=== PATIENT | male | born 1945 | race Caucasian/White ===

== ENCOUNTER 2021-12-30 10:41 | Emergency (ER) | payer OTHER, MEDICARE ==
--- OUTSIDE RECORDS SUMMARY | 2021-12-30 10:44 | XMS REPORT | Continuity of Care Document ---
:1945 Author Organization [facility] t Address [address] [place] [address] Dr. Youngblood [address] [place] [address] Care Team Providers Name Role Phone Baltazar Madden MD Primary Care Physician BALTAZAR MADDEN Attending Clinician Unavailable Problems This patient has no known problems. Allergies, Adverse Reactions, Alerts This patient has no known allergies or adverse reactions. Social History Social Habit Start Date Stop Date Quantity Comments Source Sex Assigned At [birth year] [facility] 00:00:00 00:00:00 Smoking Status Start Date Stop Date Source Tobacco smoking consumption unknown [facility] Medications This patient has no known medications. Procedures This patient has no known procedures. Plan of Care Planned Activity Planned Date Details Comments Source Future Scheduled 2021-11-15 Hepatitis C screening [facility] Test 19:13:45 (procedure) [code = [id number]] Future Scheduled 2021-11-15 COLONOSCOPY SCREENING [facility] Test 19:13:45 [code = COLONOSCOPY SCREENING] Future Scheduled 2021-11-15 SHINGLES VACCINES (1 [facility] Test 19:13:45 of 2) [code = SHINGLES VACCINES (1 of 2)] Future Scheduled 2021-11-15 65+ [facility] 19:13:45 VACCINE (1 - PCV) [code = 65+ PNEUMOCOCCAL VACCINE (1 - PCV)] Future Scheduled 2021-11-15 INFLUENZA VACCINE [facility] Test 19:13:45 [code = INFLUENZA VACCINE] Future Scheduled 2021-11-15 HEPATITIS B VACCINES [facility] Test 19:13:45 (1 of 3 - 3-dose series) [code = HEPATITIS B VACCINES (1 of 3 - 3-dose series)] Future Scheduled 2021-11-15 COVID-19 VACCINE (#1) [facility] Test 19:13:45 [code = COVID-19 VACCINE (#1)] Encounters Start End Encounter Admission Attending Care Care Encounter Source Date/Time Date/Time Type Type Clinicians Facility Department ID 2020-05-17 2020-05-17 Outpatient [facility] [id number] 00:00:00 00:00:00 BALTAZAR [address] 2020-05-17 2020-05-17 Outpatient [facility] [id number] [address] [place] [address] 00:00:00 00:00:00 BALTAZAR [address] Results This patient has no known results.
[2021-12-30] MEDS ORDERED: MORPHINE 4 MG/ML SYR ONE (10:57)
[2021-12-30] MEDS ORDERED: NA CHLORIDE 0.9% 1,000 ML ONE (10:58)
[2021-12-30] MEDS ORDERED: ONDANSETRON 4 MG/2 ML VIAL ONE (10:58)
[2021-12-30 11:14] LABS: Absolute Lymphocytes (CBC) 1.7 K/uL (0.7-4.9); Hematocrit 43.8 % (39.6-49.0); Lymphocytes % 15.2 % (15.3-44.8); MCV 92.4 fL (80-100); MPV 8.6 fL (7.6-11.3); RBC Red Blood Cell Count 4.75 M/uL (4.33-5.43)
[2021-12-30 11:33] LABS: Albumin 3.8 g/dL (3.4-5.0); Bilirubin Total 0.5 mg/dL (0.2-1.0); Potassium 4.5 mmol/L (3.5-5.1); Protein, Total 7.4 g/dL (6.4-8.2)
--- NOTE | 2021-12-30 12:15 | RAD REPORT ---
EXAM DESCRIPTION: CTStone Protocol - 12/30/2021 12:03 pm CLINICAL HISTORY: flank pain COMPARISON: Abdomen Pelvis W Contrast dated 02/04/2016; CT ABD PELVIS W CONTRAST dated 10/06/2013 TECHNIQUE: CT of the abdomen and pelvis was performed. All CT scans are performed using dose optimization technique as appropriate and may include automated exposure control or mA/KV adjustment according to patient size. FINDINGS: Lower chest: Mild scarring in the lingula. Coronary artery calcifications. Liver: No acute abnormality or suspicious lesions. Biliary: Cholecystectomy Stomach: No significant focal abnormality. Duodenum: No significant focal abnormality. Pancreas: No significant abnormality. Spleen: No significant abnormality. Adrenal: Unchanged benign right adrenal nodule. Kidney/ureter: Mild left-sided hydronephrosis secondary to a 6 mm stone in the left proximal ureter. Other bilateral renal calculi noted. Right lower pole renal cyst. Retroperitoneum: No retroperitoneal adenopathy. Vascular: No aneurysm. Bowel: Diverticulosis. No evidence of acute diverticulitis. Appendectomy.. Peritoneum: No ascites or free air. Fat containing left inguinal hernia. Bladder: Grossly unremarkable. Reproductive: No adnexal masses. Bones: No acute fracture. Other: n/a IMPRESSION: Mild left-sided hydronephrosis secondary to a 6 mm stone in the left proximal ureter.
[2021-12-30 12:18] LABS: Urine Blood 3+ (Negative); Urine Glucose Negative (Negative); Urine Protein 2+ (Negative)
[2021-12-30 12:35] LABS: Urine RBC >50 /HPF (None Seen)
[2021-12-30] MEDS ORDERED: TAMSULOSIN 0.4 MG SR CAP ONE (12:53)
[2021-12-30] MEDS ORDERED: CEFTRIAXONE 1000 MG/VIAL ONE (12:53)
[2021-12-30] MEDS ORDERED: NA CHLORIDE 0.9% 50 ML IV ONE (12:53)
[2021-12-30] MEDS ORDERED: KETOROLAC 30 MG/ML INJ ONE (12:53)
--- NOTE | 2021-12-30 13:14 | ER ---
Nurse's Notes [facility] Name: Kannan Figueroa Age: 76 yrs Sex: Male : 1945 Arrival Date: 12/30/2021 Time: 10:42 Bed 6 Private MD: Baltazar Madden V Diagnosis: Hydronephrosis with renal and ureteral calculous obstruction-6 mm left proximal calculi;UTI/ Urinary tract infection, site not specified Presentation: 12/30 10:55 Chief complaint: Patient states: left flank pain this morning and he has been having iw dark colored urine this past week , denies n/v , denies pain with urination pain is 8/10 , no hx of kidney stones. Coronavirus screen: At this time, the client does not indicate any symptoms associated with coronavirus-19. Ebola Screen: Patient negative for fever greater than or equal to 101.5 degrees Fahrenheit, and additional compatible Ebola Virus Disease symptoms Patient denies exposure to infectious person. Patient denies travel to an Ebola-affected area in the 21 days before illness onset. No symptoms or risks identified at this time. Initial Sepsis Screen: Does the patient meet any 2 criteria? No. Patient's initial sepsis screen is negative. Does the patient have a suspected source of infection? No. Patient's initial sepsis screen is negative. Risk Assessment: Do you want to hurt yourself or someone else? Patient reports no desire to harm self or others. Onset of symptoms was December 30, 2021. 10:55 Method Of Arrival: Ambulatory iw 10:55 Acuity: ROSALBA 3 iw Historical: - Allergies: 10:56 No Known Allergies; iw - Home Meds: 10:56 losartan 100 mg oral tab 1 tab once daily [Active]; AcipHex 20 mg Oral TbEC 1 tab once iw daily [Active]; propranolol 120 mg Oral cp24 1 cap once daily [Active]; Pravachol 40 mg Oral tab 1 tab once daily [Active]; topiramate 50 mg oral tab 1 tab 2 times per day [Active]; naltrexone 1.5 mg BID oral [Active]; Vitamin D3 50 mcg (2,000 unit) oral cap daily [Active]; sumatriptan succinate 100 mg oral tab 1 tab [Active]; - PMHx: 10:56 Pancreatitis; Migraine; Hypercholesterolemia; Hypertensive disorder; Arthritis; iw - PSHx: 10:56 Cholecystectomy; prostate; Appendectomy; justine knee; Tonsillectomy; Adenoid excision; iw - Immunization history:: Adult Immunizations Client reports receiving the 2nd dose of the Covid vaccine. - Social history:: Smoking status: Patient denies any tobacco usage or history of. - Family history:: not pertinent. Screenin:50 Abuse screen: Denies threats or abuse. Nutritional screening: No deficits noted. mb9 Tuberculosis screening: No symptoms or risk factors identified. Fall Risk None identified. Assessment: 10:45 General: Appears comfortable, Behavior is calm, cooperative, appropriate for age. Pain: mb9 Complains of pain in LUQ and left flank Pain currently is 8 out of 10 on a pain scale. Quality of pain is described as sharp, throbbing, Pain began suddenly, this morning Alleviated by laying supine and sitting up. 10:45 Neuro: Level of Consciousness is awake, alert, obeys commands, Oriented to person, mb9 place, time, situation, Appropriate for age. Cardiovascular: Heart tones S1 S2 present Rhythm is regular. Respiratory: Airway is patent Respiratory effort is even, unlabored, Respiratory pattern is regular, symmetrical, Breath sounds are clear bilaterally. GI: Abdomen is round Bowel sounds present X 4 quads. Abd is soft Abdomen is tender to palpation in left upper quadrant. : Denies pain urinary frequency. EENT: No signs and/or symptoms were reported regarding the EENT system. Derm: Skin is pink, warm \T\ dry. Musculoskeletal: Range of motion: intact in all extremities. 11:45 Pain: Complains of pain in left lower quadrant and left mid back and left low back and mb9 left upper quadrant. Neuro: Level of Consciousness is awake, alert, obeys commands, Oriented to person, place, time, situation, Appropriate for age. Cardiovascular: Heart tones S1 S2 present Rhythm is regular. Respiratory: Airway is patent Respiratory effort is even, unlabored, Respiratory pattern is regular, symmetrical. GI: Abdomen is round. Derm: Skin is pink, warm \T\ dry. 13:00 Pain: Complains of pain in left lower quadrant and left mid back and left low back and mb9 left upper quadrant. Neuro: Level of Consciousness is awake, alert, obeys commands, Oriented to person, place, time, situation, Appropriate for age. Cardiovascular: Heart tones S1 S2 present. Respiratory: Airway is patent Respiratory effort is even, unlabored, Respiratory pattern is regular, symmetrical, Breath sounds are clear bilaterally. Derm: Skin is pink, warm \T\ dry. 14:23 Pain: Denies pain. Neuro: Level of Consciousness is awake, alert, obeys commands. mb9 Neuro: Oriented to person, place, time, situation, Appropriate for age. Cardiovascular: Heart tones S1 S2 present Rhythm is regular. Respiratory: Airway is patent Respiratory effort is even, unlabored, Respiratory pattern is regular, symmetrical. Derm: Skin is pink, warm \T\ dry. 15:30 Pain: Denies pain. Neuro: Level of Consciousness is awake, alert, obeys commands, mb9 Oriented to person, place, time, situation, Appropriate for age. Respiratory: Airway is patent Respiratory effort is even, unlabored, Respiratory pattern is regular, symmetrical. Derm: Skin is pink, warm \T\ dry. Vital Signs: 10:45 BP 112 / 69; Pulse 56; Resp 16; Pulse Ox 100% on R/A; Pain 8/10; mb9 10:55 BP 134 / 77; Pulse 60; Resp 16; Temp 98.3; Pulse Ox 95% ; Weight 104.33 kg; Height 5 iw ft. 5 in. (165.10 cm); Pain 8/10; 11:22 BP 128 / 73; Pulse 52; Resp 16; Pulse Ox 100% on R/A; Pain 8/10; mb9 11:44 BP 128 / 77; Pulse 58; Resp 15; Pulse Ox 100% ; mb9 13:00 BP 141 / 95; Pulse 63; Resp 18; Pulse Ox 100% on R/A; mb9 14:00 BP 127 / 73; Pulse 67; Resp 16; Pulse Ox 100% ; mb9 10:55 Body Mass Index 38.27 (104.33 kg, 165.10 cm) iw ED Course: 10:42 Patient arrived in ED. am2 10:42 Baltazar Madden MD is Private Physician. am2 10:46 Eulalia Acharya, LEONID is Primary Nurse. mb9 10:47 Oneil Cee MD is Attending Physician. carol 10:56 Triage completed. iw 11:00 Arm band placed on. iw 11:00 Placed in gown. Bed in low position. Call light in reach. Side rails up X 1. mb9 11:16 CBC with Diff Sent. mb9 11:16 CMP Sent. mb9 11:16 Lipase Sent. mb9 11:16 Urine Microscopic Only Sent. mb9 11:16 Inserted saline lock: 20 gauge in right antecubital area, using aseptic technique. mb9 ,using aseptic technique. completed by Crescencio Blood collected. 11:30 No provider procedures requiring assistance completed. mb9 12:04 Stone Protocol In Process Unspecified. EDMS 13:13 Baltazar Madden MD is Referral Physician. carol 13:13 Angel Dooley MD is Referral Physician. carol 15:19 Abdomen 1 View (KUB) XRAY In Process Unspecified. EDMS 15:30 IV discontinued, intact, bleeding controlled, No redness/swelling at site. Pressure mb9 dressing applied. Administered Medications: 11:15 Drug: NS 0.9% 1000 ml Route: IV; Rate: 1 bolus; Site: right antecubital; mb9 14:27 Follow up: Response: No adverse reaction; IV Status: Completed infusion mb9 11:16 Drug: Zofran (Ondansetron) 4 mg Route: IVP; Site: right antecubital; mb9 11:46 Follow up: Response: No adverse reaction mb9 11:16 Drug: morphine 4 mg Route: IVP; Infused Over: 4 mins; Site: right antecubital; mb9 11:45 Follow up: Response: No adverse reaction mb9 12:48 CANCELLED (Physician Discretion): Rocephin (cefTRIAXone) 1 grams IV at per protocol mb9 once; Given slow IV push per pharmacy instructions 13:05 Drug: Flomax (tamsulosin) 0.4 mg Route: PO; mb9 13:35 Follow up: Response: No adverse reaction aa5 13:05 Drug: Rocephin - (cefTRIAXone) 1 grams Route: IVPB; Infused Over: 30 mins; Site: right mb9 antecubital; 13:35 Follow up: Response: No adverse reaction; IV Status: Completed infusion aa5 13:10 Drug: TORadol (ketorolac) 30 mg Route: IVP; Site: right antecubital; mb9 14:18 Follow up: Response: No adverse reaction mb9 13:20 Drug: Cipro (ciprofloxacin) 500 mg Route: PO; mb9 13:45 Follow up: Response: No adverse reaction mb9 Medication: 10:50 VIS not applicable for this client. mb9 Outcome: 13:13 Discharge ordered by MD. medina 14:52 Patient left the ED. 15:30 Discharged to home ambulatory. mb9 15:30 Condition: stable 15:30 Discharge instructions given to patient, Instructed on discharge instructions, follow up and referral plans. Demonstrated understanding of instructions, follow-up care, medications, Prescriptions given X 4. Signatures: Dispatcher [employer] EDMT Oneil Cee MD MD cha Williams, Irene, LEONID RN Keiko Bergeron RN RN [email or web address] Fabby Haque Mary RN RN mb9 Corrections: (The following items were deleted from the chart) 12:07 10:45 Pain: Complains of pain in LUQ and left flank Pain currently is 8 out of 10 on a mb9 pain scale. Quality of pain is described as sharp, throbbing, Alleviated by laying supine and sitting up mb9
--- NOTE | 2021-12-30 13:14 | EDPHYS ---
Physician Documentation [facility] Name: Kannan Figueroa Age: 76 yrs Sex: Male : 1945 Arrival Date: 12/30/2021 Time: 10:42 Bed 6 Private MD: Baltazar Madden V ED Physician Oneil Cee HPI: 12/30 12:34 This 76 yrs old Male presents to ER via Ambulatory with complaints of carol Abdominal Pain, Back Pain, dark urine. 12:34 The patient presents with pain that is acute, with no known mechanism of injury. The carol symptoms are located in the left low back and left mid back. Onset: The symptoms/episode began/occurred 1 day(s) ago. The pain radiates to the left low back and left mid back. The pain does not radiate. Associated signs and symptoms: The patient has no apparent associated signs or symptoms. The problem was sustained from unknown cause. Modifying factors: The patient symptoms are alleviated by nothing, the patient symptoms are aggravated by nothing. Severity of symptoms: At their worst the symptoms were mild, moderate, in the emergency department the symptoms have resolved. The patient has not experienced similar symptoms in the past. Historical: - Allergies: 10:56 No Known Allergies; iw - Home Meds: 10:56 losartan 100 mg oral tab 1 tab once daily [Active]; AcipHex 20 mg Oral TbEC 1 tab once iw daily [Active]; propranolol 120 mg Oral cp24 1 cap once daily [Active]; Pravachol 40 mg Oral tab 1 tab once daily [Active]; topiramate 50 mg oral tab 1 tab 2 times per day [Active]; naltrexone 1.5 mg BID oral [Active]; Vitamin D3 50 mcg (2,000 unit) oral cap daily [Active]; sumatriptan succinate 100 mg oral tab 1 tab [Active]; - PMHx: 10:56 Pancreatitis; Migraine; Hypercholesterolemia; Hypertensive disorder; Arthritis; iw - PSHx: 10:56 Cholecystectomy; prostate; Appendectomy; justine knee; Tonsillectomy; Adenoid excision; iw - Immunization history:: Adult Immunizations Client reports receiving the 2nd dose of the Covid vaccine. - Social history:: Smoking status: Patient denies any tobacco usage or history of. - Family history:: not pertinent. ROS: 12:34 Constitutional: Negative for fever, chills, and weight loss, Eyes: Negative for injury, carol pain, redness, and discharge, ENT: Negative for injury, pain, and discharge, Neck: Negative for injury, pain, and swelling, Cardiovascular: Negative for chest pain, palpitations, and edema, Respiratory: Negative for shortness of breath, cough, wheezing, and pleuritic chest pain, : Negative for injury, bleeding, discharge, and swelling, MS/Extremity: Negative for injury and deformity, Skin: Negative for injury, rash, and discoloration, Neuro: Negative for headache, weakness, numbness, tingling, and seizure, Psych: Negative for depression, anxiety, suicide ideation, homicidal ideation, and hallucinations, Allergy/Immunology: Negative for hives, rash, and allergies, Endocrine: Negative for neck swelling, polydipsia, polyuria, polyphagia, and marked weight changes, Hematologic/Lymphatic: Negative for swollen nodes, abnormal bleeding, and unusual bruising. 12:34 Respiratory: Positive for 12:34 Abdomen/GI: Positive for abdominal pain, of the anterior aspect of left lateral abdomen, posterior aspect of left lateral abdomen and left upper quadrant. Exam: 12:34 Constitutional: This is a well developed, well nourished patient who is awake, alert, carol and in no acute distress. Head/Face: Normocephalic, atraumatic. Eyes: Pupils equal round and reactive to light, extra-ocular motions intact. Lids and lashes normal. Conjunctiva and sclera are non-icteric and not injected. Cornea within normal limits. Periorbital areas with no swelling, redness, or edema. ENT: Nares patent. No nasal discharge, no septal abnormalities noted. Tympanic membranes are normal and external auditory canals are clear. Oropharynx with no redness, swelling, or masses, exudates, or evidence of obstruction, uvula midline. Mucous membranes moist. Neck: Trachea midline, no thyromegaly or masses palpated, and no cervical lymphadenopathy. Supple, full range of motion without nuchal rigidity, or vertebral point tenderness. No Meningismus. Chest/axilla: Normal chest wall appearance and motion. Nontender with no deformity. No lesions are appreciated. Cardiovascular: Regular rate and rhythm with a normal S1 and S2. No gallops, murmurs, or rubs. Normal PMI, no JVD. No pulse deficits. Respiratory: Lungs have equal breath sounds bilaterally, clear to auscultation and percussion. No rales, rhonchi or wheezes noted. No increased work of breathing, no retractions or nasal flaring. Male : Normal genitalia with no discharge or lesions. Skin: Warm, dry with normal turgor. Normal color with no rashes, no lesions, and no evidence of cellulitis. MS/ Extremity: Pulses equal, no cyanosis. Neurovascular intact. Full, normal range of motion. Neuro: Awake and alert, GCS 15, oriented to person, place, time, and situation. Cranial nerves II-XII grossly intact. Motor strength 5/5 in all extremities. Sensory grossly intact. Cerebellar exam normal. Normal gait. Psych: Awake, alert, with orientation to person, place and time. Behavior, mood, and affect are within normal limits. 12:34 Abdomen/GI: Inspection: distension, that is mild, in the left upper quadrant and left lower quadrant, Palpation: mild abdominal tenderness, in the anterior aspect of left lateral abdomen, posterior aspect of left lateral abdomen, left upper quadrant and left lower quadrant, Liver: no appreciated palpable abnormalities, Hernia: not appreciated. Vital Signs: 10:45 BP 112 / 69; Pulse 56; Resp 16; Pulse Ox 100% on R/A; Pain 8/10; mb9 10:55 BP 134 / 77; Pulse 60; Resp 16; Temp 98.3; Pulse Ox 95% ; Weight 104.33 kg; Height 5 iw ft. 5 in. (165.10 cm); Pain 8/10; 11:22 BP 128 / 73; Pulse 52; Resp 16; Pulse Ox 100% on R/A; Pain 8/10; mb9 11:44 BP 128 / 77; Pulse 58; Resp 15; Pulse Ox 100% ; mb9 13:00 BP 141 / 95; Pulse 63; Resp 18; Pulse Ox 100% on R/A; mb9 14:00 BP 127 / 73; Pulse 67; Resp 16; Pulse Ox 100% ; mb9 10:55 Body Mass Index 38.27 (104.33 kg, 165.10 cm) iw MDM: 10:47 Patient medically screened. carol 12:37 Differential diagnosis: Obesity Osteoarthritis Perforated Ulcer Renal Infarction carol ruptured disc, sprain, Ureterolithiasis vertebral fracture. Data reviewed: vital signs, nurses notes, lab test result(s), radiologic studies, CT scan. Data interpreted: nuclear monitoring technician: rate is 58 beats/min, rhythm is regular, Pulse oximetry: on room air is 100 %. Counseling: I had a detailed discussion with the patient and/or guardian regarding: the presence of at least one elevated blood pressure reading (>120/80) during this emergency department visit, lab results, the need for outpatient follow up. 12/30 10:49 Order name: CBC with Diff; Complete Time: 12:[address] [facility] 12/30 10:49 Order name: CMP; Complete Time: 12:[address] [facility] 12/30 10:49 Order name: Lipase; Complete Time: 12:[address] [facility] 12/30 10:49 Order name: Urine Microscopic Only; Complete Time: 13:[address] [facility] 12/30 12:18 Order name: Urine Dipstick-Ancillary; Complete Time: 12:21 [facility] 12/30 12:38 Order name: Urine Culture [facility] 12/30 11:19 Order name: Stone Protocol; Complete Time: 12:21 [facility] 12/30 13:43 Order name: Abdomen 1 View (KUB) XRAY aa5 12/30 10:49 Order name: IV Saline Lock; Complete Time: 11:[address] [facility] 12/30 10:49 Order name: Labs collected and sent; Complete Time: 11:[address] [facility] 12/30 10:49 Order name: Urine Dipstick-Ancillary (obtain specimen); Complete Time: 12:[address] [facility] Administered Medications: 11:15 Drug: NS 0.9% 1000 ml Route: IV; Rate: 1 bolus; Site: right antecubital; mb9 14:27 Follow up: Response: No adverse reaction; IV Status: Completed infusion mb9 11:16 Drug: Zofran (Ondansetron) 4 mg Route: IVP; Site: right antecubital; mb9 11:46 Follow up: Response: No adverse reaction mb9 11:16 Drug: morphine 4 mg Route: IVP; Infused Over: 4 mins; Site: right antecubital; mb9 11:45 Follow up: Response: No adverse reaction mb9 12:48 CANCELLED (Physician Discretion): Rocephin (cefTRIAXone) 1 grams IV at per protocol mb9 once; Given slow IV push per pharmacy instructions 13:05 Drug: Flomax (tamsulosin) 0.4 mg Route: PO; mb9 13:35 Follow up: Response: No adverse reaction aa5 13:05 Drug: Rocephin - (cefTRIAXone) 1 grams Route: IVPB; Infused Over: 30 mins; Site: right mb9 antecubital; 13:35 Follow up: Response: No adverse reaction; IV Status: Completed infusion aa5 13:10 Drug: TORadol (ketorolac) 30 mg Route: IVP; Site: right antecubital; mb9 14:18 Follow up: Response: No adverse reaction mb9 13:20 Drug: Cipro (ciprofloxacin) 500 mg Route: PO; mb9 13:45 Follow up: Response: No adverse reaction mb9 Disposition Summary: 12/30/21 13:13 Discharge Ordered Location: Home [facility] Problem: new carol Symptoms: have improved carol Condition: Stable carol Diagnosis - Hydronephrosis with renal and ureteral calculous obstruction - 6 mm left proximal carol calculi - UTI/ Urinary tract infection, site not specified carol Followup: carol - With: - When: 2 - 3 days - Reason: Recheck today's complaints, Continuance of care, Re-evaluation by your physician Followup: carol - With: - When: 2 - 3 days - Reason: Recheck today's complaints, Re-evaluation by your physician Discharge Instructions: - Discharge Summary Sheet carol - Kidney Stones carol - Kidney Stones, [id number] carol - Hydronephrosis carol - Urinary Tract Infection, Adult carol - Urinary Tract Infection, Adult, [id number] [facility] Forms: - Medication Reconciliation Form [facility] - Thank You Letter [facility] - Antibiotic Education [facility] - Prescription Opioid Use [facility] Prescriptions: - tamsulosin 0.4 mg Oral capsule - take 1 capsule by ORAL route once daily 1/2 hour following the same meal each [facility] day; 30 capsule; Refills: 0, Product Selection Permitted - Zofran 4 mg Oral Tablet - take 1 tablet by ORAL route every 12 hours As needed; 20 tablet; Refills: 0, [facility] Product Selection Permitted - Tylenol-Codeine #3 300 mg-30 mg Oral - take 2 tablet by ORAL route every 6 hours; 24 tablet; Refills: 0, Product carol Selection Permitted - Cipro 500 mg Oral Tablet - take 1 tablet by ORAL route every 12 hours for 7 days; 14 tablet; Refills: 0, [facility] Product Selection Permitted Signatures: Dispatcher [employer] Oneil Mariano MD MD cha Williams, Irene, RN Eulalia Ruiz RN RN mb9 Keiko Hancock RN aa5 Corrections: (The following items were deleted from the chart) 12:48 12:22 Rocephin (cefTRIAXone) 1 grams IV at per protocol once; Given slow IV push per 9 pharmacy instructions ordered. carol 12:48 12:48 Rocephin (cefTRIAXone) 1 grams IV at per protocol once; Given slow IV push per 9 pharmacy instructions ordered. mb9
[2021-12-30] MEDS ORDERED: CIPROFLOXACIN HCL 500 MG TAB ONE (14:29)
[2021-12-30 15:08] VITALS: TEMP 98.3
[2021-12-30 15:14] VITALS: O2SAT 100
[2021-12-30 15:18] VITALS: BP 127/73
--- NOTE | 2021-12-30 15:37 | RAD REPORT ---
EXAM DESCRIPTION: RAD - Abdomen 1 View (KUB) - 12/30/2021 3:17 pm CLINICAL HISTORY: kidney stone COMPARISON: Stone Protocol dated 12/30/2021 FINDINGS: Nonobstructive bowel gas pattern. Calcification at the level of the left L3-4 disc space o n the left may represent the known ureteral stone.Visualized lungs are unremarkable.No abnormal calci fications. IMPRESSION: Nonobstructive bowel gas pattern. Known ureteral stone on the left side at L3-4.
== END 2021-12-30 14:52 | disposition home or self-care (01) ==
LOC: ER 10:41
DX: N13.2 Hydronephrosis with renal and ureteral calculous obstruction (principal); N39.0 Urinary tract infection, site not specified; I10 Essential (primary) hypertension
CPT/HCPCS: 96365; 96361; 87088; 85025; 87086; 36415; 83690; 80053; 76377; 74176; 74018; 96375; 99284; J7030; J2405; 81003; 81015

== ENCOUNTER 2021-12-31 11:05 | Observation (INO) | payer OTHER, MEDICARE ==
--- OUTSIDE RECORDS SUMMARY | 2021-12-31 11:07 | XMS REPORT | Continuity of Care Document ---
:1945 Author Organization [facility] t Address [address] [place] [address] [address]. [address] [place] [address] Care Team Providers Name Role Phone Baltazar Madden MD Primary Care Physician BALTAZAR MADDEN Attending Clinician Unavailable Problems This patient has no known problems. Allergies, Adverse Reactions, Alerts This patient has no known allergies or adverse reactions. Social History Social Habit Start Date Stop Date Quantity Comments Source Sex Assigned At [birth year] [facility] 00:00:00 00:00:00 Smoking Status Start Date Stop Date Source Tobacco smoking consumption unknown [facility] Medications This patient has no known medications. Procedures This patient has no known procedures. Plan of Care Planned Activity Planned Date Details Comments Source Future Scheduled 2021-11-15 INFLUENZA VACCINE Method [facility] Test 19:13:45 [code = INFLUENZA VACCINE] Future Scheduled 2021-11-15 HEPATITIS B VACCINES Met [facility] Test 19:13:45 (1 of 3 - 3-dose series) [code = HEPATITIS B VACCINES (1 of 3 - 3-dose series)] Future Scheduled 2021-11-15 COVID-19 VACCINE (#1) [facility] Test 19:13:45 [code = COVID-19 VACCINE (#1)] Future Scheduled 2021-11-15 INFLUENZA VACCINE Method [facility] Test 19:13:45 [code = INFLUENZA VACCINE] Future Scheduled 2021-11-15 HEPATITIS B VACCINES Met [facility] Test 19:13:45 (1 of 3 - 3-dose series) [code = HEPATITIS B VACCINES (1 of 3 - 3-dose series)] Future Scheduled 2021-11-15 COVID-19 VACCINE (#1) [facility] Test 19:13:45 [code = COVID-19 VACCINE (#1)] Future Scheduled 2021-11-15 Hepatitis C screening [facility] Test 19:13:45 (procedure) [code = [id number]] Future Scheduled 2021-11-15 COLONOSCOPY SCREENING [facility] Test 19:13:45 [code = COLONOSCOPY SCREENING] Future Scheduled 2021-11-15 SHINGLES VACCINES (1 Met [facility] Test 19:13:45 of 2) [code = SHINGLES VACCINES (1 of 2)] Future Scheduled 2021-11-15 65+ [facility] 19:13:45 VACCINE (1 - PCV) [code = 65+ PNEUMOCOCCAL VACCINE (1 - PCV)] Future Scheduled 2021-11-15 Hepatitis C screening [facility] Test 19:13:45 (procedure) [code = [id number]] Future Scheduled 2021-11-15 COLONOSCOPY SCREENING [facility] Test 19:13:45 [code = COLONOSCOPY SCREENING] Future Scheduled 2021-11-15 SHINGLES VACCINES (1 Met [facility] Test 19:13:45 of 2) [code = SHINGLES VACCINES (1 of 2)] Future Scheduled 2021-11-15 65+ PNEUMOCOCCAL [facility] Test 19:13:45 VACCINE (1 - PCV) [code = 65+ PNEUMOCOCCAL VACCINE (1 - PCV)] Encounters Start End Encounter Admission Attending Care Care Encounter Source Date/Time Date/Time Type Type Clinicians Facility Department ID 2020-05-17 2020-05-17 Outpatient [facility] [id number] [address] [place] [address] 00:00:00 00:00:00 BALTAZAR [address] 2020-05-17 2020-05-17 Outpatient [facility] [id number] [address] [place] [address] 00:00:00 00:00:00 BALTAZAR [address] Results This patient has no known results.
[2021-12-31 12:11] LABS: Absolute Lymphocytes (CBC) 1.7 K/uL (0.7-4.9); Hematocrit 40.8 % (39.6-49.0); Lymphocytes % 13.4 % (15.3-44.8); MPV 8.8 fL (7.6-11.3); RBC Red Blood Cell Count 4.44 M/uL (4.33-5.43)
[2021-12-31] MEDS ORDERED: NA CHLORIDE 0.9% 1,000 ML ONE (12:15)
[2021-12-31] MEDS ORDERED: FENTANYL CITR 100 MCG/2 ML ONE (12:15)
[2021-12-31 12:25] LABS: Albumin 3.4 g/dL (3.4-5.0); Bilirubin Total 0.6 mg/dL (0.2-1.0); Protein, Total 6.8 g/dL (6.4-8.2)
--- NOTE | 2021-12-31 12:28 | RAD REPORT ---
EXAM DESCRIPTION: [place] Single View12/31/2021 12:16 pm CLINICAL HISTORY: Preop exam for genitourinary surgery COMPARISON: 2017 FINDINGS: The lungs appear clear of acute infiltrate. The heart is normal size Sclerotic foci within a mid to lower anterior right rib unchanged
[2021-12-31 12:47] LABS: SARS-CoV-2 Antigen Rapid Res Negative (Negative)
--- NOTE | 2021-12-31 12:57 | RAD REPORT ---
EXAM DESCRIPTION: CT - Stone Protocol - 12/31/2021 12:39 pm CLINICAL HISTORY: Flank pain. stone COMPARISON: Stone Protocol dated 12/30/2021; CT ABD PELVIS W CONTRAST dated 10/06/2013 TECHNIQUE: Axial images were obtained without oral or IV contrast. Lack of contrast limits solid org an and vascular assessment. The [id number] spans the entirety of the system partially obscuring uppermost abdomen and lung bases. Coronal reformatted images were obtained and reviewed. All CT scans are performed using dose optimization technique as appropriate and may include automated exposure control or mA/KV adjustment according to patient size. FINDINGS: The lower lung rider are clear. Imaged portions of the liver and spleen show no suspicious findings on non-contrast imaging. The panc reas and adrenal glands are normal. No pathologic lymphadenopathy in the abdomen or pelvis. 6 mm stone is present mid left ureter. In addition, there are 2 small stones seen in the distal left ureter. The findings result in mild left hydronephrosis. Compared to yesterday's examination, the sto susana have migrated inferiorly mildly. Small stones are present in the calices of both kidneys as well. There is a prominent right renal cysts noted. 3 cm right adrenal mass appears unchanged or smaller interval. No new or worrisome solid organ findin g. No bowel obstruction, free air, free fluid or abscess. Prominent sigmoid diverticulosis without diver ticulitis.Moderate large fat containing inguinal hernia. Mild lumbosacral degenerative changes. IMPRESSION: There has been mild inferior migration of left-sided ureter stones since comparative yi dy yesterday. Left sided mild hydronephrosis persists. Bilateral nephrolithiasis is present.
--- NOTE | 2021-12-31 13:05 | EDPHYS ---
Physician Documentation [facility] Name: Kannan Figueroa Age: 76 yrs Sex: Male : 1945 Arrival Date: 12/31/2021 Time: 11:09 Bed 27 Private MD: Baltazar Madden V ED Physician Sobia Mcrae HPI: 12/31 11:45 This 76 yrs old Male presents to ER via Unassigned with complaints of Possible Kidney snw Stone, Urinary Problem. 11:45 The patient complains of pain in the left mid back. The pain does not radiate. Onset: snw The symptoms/episode began/occurred gradually. Modifying factors: The symptoms are alleviated by nothing. Associated signs and symptoms: Pertinent positives: dysuria, dark urine. Severity of pain: At its worst the pain was severe in the emergency department the pain is unchanged. The patient has experienced a previous episode, yesterday. The patient has been recently seen by a physician: The patient has been recently seen at the [facility] Emergency Department, yesterday, for similar complaints given T#3, Jeison Donaldson Zofran. 11:46 Dr. Madden is PCP. snw Historical: - Allergies: 11:42 No Known Allergies; iw - Home Meds: 12:34 Aciphex 20 mg Oral TbEC 1 tab once daily [Active]; Fioricet Oral [Active]; losartan 100 em6 mg Oral tab 1 tab once daily [Active]; naltrexone 1.5 mg BID Oral [Active]; Pravachol 40 mg Oral tab 1 tab once daily [Active]; pravastatin 20 mg Oral tab 1 tab once daily [Active]; propranolol 120 mg Oral cp24 1 cap once daily [Active]; propranolol 60 mg Oral Cs24 [Active]; Relpax 40 mg Oral tab 1 tab [Active]; sumatriptan succinate 100 mg Oral tab 1 tab [Active]; topiramate 50 mg Oral tab 1 tab 2 times per day [Active]; Vitamin D3 50 mcg (2,000 unit) Oral cap daily [Active]; - PMHx: 11:42 Arthritis; Hypercholesterolemia; Hypertensive disorder; Migraine; Pancreatitis; Angina iw pectoris; - PSHx: 12:34 Adenoid excision; Appendectomy; NICKOLAS knee; Cholecystectomy; prostate; Tonsillectomy; em6 - Immunization history:: Adult Immunizations unknown. - Social history:: Smoking status: unknown. ROS: 11:44 Constitutional: Negative for fever, chills, and weight loss, Eyes: Negative for injury, snw pain, redness, and discharge, ENT: Negative for injury, pain, and discharge, Neck: Negative for injury, pain, and swelling, Cardiovascular: Negative for chest pain, palpitations, and edema, Respiratory: Negative for shortness of breath, cough, wheezing, and pleuritic chest pain. 11:44 Abdomen/GI: Negative for abdominal pain, nausea, vomiting, diarrhea, and constipation. 11:44 MS/Extremity: Negative for injury and deformity, Skin: Negative for injury, rash, and discoloration, Neuro: Negative for headache, weakness, numbness, tingling, and seizure. 11:44 Back: Positive for flank pain, on the left. 11:44 : Positive for flank pain, dark urine. Exam: 11:43 Head/Face: Normocephalic, atraumatic. Eyes: Pupils equal round and reactive to light, snw extra-ocular motions intact. Lids and lashes normal. Conjunctiva and sclera are non-icteric and not injected. Cornea within normal limits. Periorbital areas with no swelling, redness, or edema. ENT: Nares patent. No nasal discharge, no septal abnormalities noted. Tympanic membranes are normal and external auditory canals are clear. Oropharynx with no redness, swelling, or masses, exudates, or evidence of obstruction, uvula midline. Mucous membranes moist. Neck: Trachea midline, no thyromegaly or masses palpated, and no cervical lymphadenopathy. Supple, full range of motion without nuchal rigidity, or vertebral point tenderness. No Meningismus. Chest/axilla: Normal chest wall appearance and motion. Nontender with no deformity. No lesions are appreciated. 11:43 Respiratory: Lungs have equal breath sounds bilaterally, clear to auscultation and percussion. No rales, rhonchi or wheezes noted. No increased work of breathing, no retractions or nasal flaring. 11:43 MS/ Extremity: Pulses equal, no cyanosis. Neurovascular intact. Full, normal range of motion. Neuro: Awake and alert, GCS 15, oriented to person, place, time, and situation. Cranial nerves II-XII grossly intact. Motor strength 5/5 in all extremities. Sensory grossly intact. Cerebellar exam normal. Normal gait. 11:43 Constitutional: The patient appears alert, awake, obese, uncomfortable. 11:43 Cardiovascular: Rate: bradycardic, Rhythm: regular, Heart sounds: normal. 11:43 Abdomen/GI: Inspection: obese Bowel sounds: active, Palpation: nontender. 11:43 Back: pain, that is moderate, CVA tenderness, that is moderate, is noted on the left. 11:43 Skin: Appearance: Color: dusky, Temperature: normal temperature, Moisture: dry. Vital Signs: 11:42 BP 105 / 69; Pulse 52; Resp 16; Temp 97.4; Pulse Ox 97% on R/A; Pain 8/10; iw 13:00 BP 100 / 61; Pulse 51; Resp 16; Pulse Ox 100% on R/A; em6 14:00 BP 119 / 62; Pulse 54; Resp 16; Pulse Ox 100% on R/A; em6 15:00 BP 118 / 70; Pulse 50; Resp 16; Pulse Ox 100% on R/A; em6 16:08 BP 105 / 70; Pulse 57; Resp 16; Pulse Ox 100% on R/A; em6 MDM: 11:47 Patient medically screened. snw 12:40 Data reviewed: vital signs, nurses notes. Data interpreted: Pulse oximetry: on room air snw is 97 %. 12:46 Physician consultation: Angel Dooley MD was contacted at 12:46, regarding consult, snw patient's condition, Dr. Dooley states he can certainly stent pt tomorrow. 13:03 Physician consultation: Baltazar Madden MD was called at 13:03, was contacted at 13:03, [facility] regarding admission, to the telemetry unit. 13:05 Physician consultation: would like medications started, Dilaudid 1mg SIVP q 4hours prn snw pain. 12/31 11:43 Order name: CBC with Diff; Complete Time: 12:16 snw 12/31 11:43 Order name: CMP; Complete Time: 12:30 snw 12/31 11:43 Order name: Lipase; Complete Time: 12:30 snw 12/31 11:43 Order name: SARS RAPID; Complete Time: 12:47 snw 12/31 13:40 Order name: Basic Metabolic Panel EDMS 10/17 13:40 Order name: Basic Metabolic Panel EDMS 12/31 11:43 Order name: CT Stone Protocol snw 12/31 11:43 Order name: Chest Single View XRAY; Complete Time: 12:30 snw 12/31 13:40 Order name: CBC with Automated Diff EDMS 12/31 13:40 Order name: CBC with Automated Diff EDMS 12/31 13:40 Order name: Lipase EDMS 12/31 13:40 Order name: Lipase EDMS 12/31 13:40 Order name: Liver (Hepatic) Function EDMS 12/31 13:40 Order name: Liver (Hepatic) Function EDMS 12/31 11:43 Order name: IV Saline Lock; Complete Time: 12:31 snw 12/31 11:43 Order name: Labs collected and sent; Complete Time: 12:31 snw 12/31 11:43 Order name: EKG; Complete Time: 11:44 snw 12/31 11:43 Order name: EKG - Nurse/Tech; Complete Time: 12:31 snw 12/31 12:36 Order name: Stone Protocol; Complete Time: 13:00 EDMS 12/31 13:40 Order name: Diet - Advance as Tolerated EDMS 12/31 13:40 Order name: NPO EDMS EC:35 Rate is 55 beats/min. Rhythm is regular. QRS [place] is Normal. [place] interval is normal. snw Clinical impression: Sinus bradycardia. Administered Medications: 12:15 Drug: NS 0.9% 1000 ml Route: IV; Rate: 1 bolus; Site: right antecubital; em6 14:00 Follow up: Response: No adverse reaction; IV Status: Completed infusion; IV Intake: em6 1000ml 12:15 Drug: fentaNYL (PF) 25 mcg Route: IVP; Site: right antecubital; em6 12:40 Follow up: Response: No adverse reaction; RASS: Alert and Calm (0) em6 Disposition Summary: 12/31/21 13:04 Hospitalization Ordered Hospitalization Status: Observation snw Provider: Baltazar Madden Location: Telemetry/MedSurg (observation) snw Condition: Stable snw Problem: an acute exacerbation snw Symptoms: are unchanged snw Bed/Room Type: Standard snw Room Assignment: 415(12/31/21 15:31) bd Diagnosis - Hydronephrosis with renal and ureteral calculous obstruction snw Forms: - Medication Reconciliation Form snw - SBAR form snw Addendum: 01/03/2022 03:31 STAFF ATTESTATION STATEMENT: I was immediately available onsite in the emergency s d2 department for consultation in the care of this patient. I did not see or examine this patient. Sobia Mcrae MD. Signatures: Dispatcher [employer] EDMS Moni Rey Shelly, FNP-C MANAGER PRINTING-Csnw Kamilah Maravilla, LEONID RN iw Sobia Mcrae MD MD sd2 Meagan Oropeza RN RN em6 Corrections: (The following items were deleted from the chart) 12/31 15:31 13:04 snw bd
--- NOTE | 2021-12-31 13:05 | ER ---
Nurse's Notes [facility] Name: Kannan Figueroa Age: 76 yrs Sex: Male : 1945 Arrival Date: 12/31/2021 Time: 11:09 Bed 27 Private MD: Baltazar Madden V Diagnosis: Hydronephrosis with renal and ureteral calculous obstruction Presentation: 12/31 11:35 Chief complaint: Patient states: pt was diagnosed with kidney stone yesterday , and iw UTI, still having a lot of pain even after taking his Tylenol3. 11:36 Acuity: ROSALBA 3 iw 12:15 Coronavirus screen: At this time, the client does not indicate any symptoms associated em6 with coronavirus-19. Ebola Screen: Patient negative for fever greater than or equal to 101.5 degrees Fahrenheit, and additional compatible Ebola Virus Disease symptoms. Initial Sepsis Screen: Does the patient meet any 2 criteria? No. Patient's initial sepsis screen is negative. Does the patient have a suspected source of infection? No. Patient's initial sepsis screen is negative. Onset of symptoms was December 30, 2021. 12:34 Risk Assessment: Do you want to hurt yourself or someone else? Patient reports no em6 desire to harm self or others. 12:34 Method Of Arrival: Ambulatory em6 Historical: - Allergies: 11:42 No Known Allergies; iw - Home Meds: 12:34 Aciphex 20 mg Oral TbEC 1 tab once daily [Active]; Fioricet Oral [Active]; losartan 100 em6 mg Oral tab 1 tab once daily [Active]; naltrexone 1.5 mg BID Oral [Active]; Pravachol 40 mg Oral tab 1 tab once daily [Active]; pravastatin 20 mg Oral tab 1 tab once daily [Active]; propranolol 120 mg Oral cp24 1 cap once daily [Active]; propranolol 60 mg Oral Cs24 [Active]; Relpax 40 mg Oral tab 1 tab [Active]; sumatriptan succinate 100 mg Oral tab 1 tab [Active]; topiramate 50 mg Oral tab 1 tab 2 times per day [Active]; Vitamin D3 50 mcg (2,000 unit) Oral cap daily [Active]; - PMHx: 11:42 Arthritis; Hypercholesterolemia; Hypertensive disorder; Migraine; Pancreatitis; Angina iw pectoris; - PSHx: 12:34 Adenoid excision; Appendectomy; NICKOLAS knee; Cholecystectomy; prostate; Tonsillectomy; em6 - Immunization history:: Adult Immunizations unknown. - Social history:: Smoking status: unknown. Screenin:34 Abuse screen: Denies threats or abuse. Nutritional screening: No deficits noted. em6 Tuberculosis screening: No symptoms or risk factors identified. Fall Risk IV access (20 points). Total Kent Fall Scale indicates No Risk (0-24 pts). Assessment: 12:15 General: Appears comfortable, Behavior is cooperative. Pain: Complains of pain in left em6 mid back Pain radiates to anterior aspect of left lateral abdomen Pain currently is 7 out of 10 on a pain scale. Quality of pain is described as sharp, Pain began 1 day ago. Is continuous. Neuro: Level of Consciousness is awake, alert, obeys commands, Oriented to person, place, time, situation, Denies headache. Cardiovascular: Heart tones present Patient's skin is warm and dry. Rhythm is sinus bradycardia. Respiratory: Airway is patent Respiratory effort is even, unlabored, Respiratory pattern is regular, symmetrical, Breath sounds are clear bilaterally. GI: Abdomen is non-distended, Bowel sounds present X 4 quads. Abd is soft and non tender X 4 quads. : Reports burning with urination. EENT: No signs and/or symptoms were reported regarding the EENT system. Derm: No signs and/or symptoms reported regarding the dermatologic system. Musculoskeletal: Circulation, motion, and sensation intact. Range of motion: intact in all extremities. 13:15 Reassessment: Patient appears in no apparent distress at this time. No changes from em6 previously documented assessment. Patient and/or family updated on plan of care and expected duration. Pain level reassessed. Patient is alert, oriented x 3, equal unlabored respirations, skin warm/dry/pink. 14:15 Reassessment: Patient appears in no apparent distress at this time. No changes from em6 previously documented assessment. Patient and/or family updated on plan of care and expected duration. Pain level reassessed. Patient is alert, oriented x 3, equal unlabored respirations, skin warm/dry/pink. 15:15 Reassessment: Patient appears in no apparent distress at this time. No changes from em6 previously documented assessment. Patient and/or family updated on plan of care and expected duration. Pain level reassessed. Patient is alert, oriented x 3, equal unlabored respirations, skin warm/dry/pink. Vital Signs: 11:42 BP 105 / 69; Pulse 52; Resp 16; Temp 97.4; Pulse Ox 97% on R/A; Pain 8/10; iw 13:00 BP 100 / 61; Pulse 51; Resp 16; Pulse Ox 100% on R/A; em6 14:00 BP 119 / 62; Pulse 54; Resp 16; Pulse Ox 100% on R/A; em6 15:00 BP 118 / 70; Pulse 50; Resp 16; Pulse Ox 100% on R/A; em6 16:08 BP 105 / 70; Pulse 57; Resp 16; Pulse Ox 100% on R/A; em6 ED Course: 11:09 Patient arrived in ED. rg4 11:09 Baltazar Madden MD is Private Physician. rg4 11:35 [facility] Con[facility]C [facility] snw 11:36 Sobia Mcrae MD is Attending Physician. snw 11:36 Triage completed. iw 12:08 Meagan Oropeza, RN is Primary Nurse. em6 12:10 Initial lab(s) drawn, by me, sent to lab. Inserted saline lock: 22 gauge in right iw antecubital area, using aseptic technique. Blood collected. 12:15 Bed in low position. Call light in reach. Side rails up X2. Pulse ox on. NIBP on. Warm em6 blanket given. 12:18 Chest Single View XRAY In Process Unspecified. EDMS 12:31 SARS RAPID Sent. em6 12:34 Arm band placed on. em6 12:41 Stone Protocol In Process Unspecified. EDMS 13:04 Baltazar Madden MD is Hospitalizing Provider. snw 16:27 No provider procedures requiring assistance completed. Patient admitted, IV remains in em6 place. Administered Medications: 12:15 Drug: NS 0.9% 1000 ml Route: IV; Rate: 1 bolus; Site: right antecubital; em6 14:00 Follow up: Response: No adverse reaction; IV Status: Completed infusion; IV Intake: em6 1000ml 12:15 Drug: fentaNYL (PF) 25 mcg Route: IVP; Site: right antecubital; em6 12:40 Follow up: Response: No adverse reaction; RASS: Alert and Calm (0) em6 Medication: 16:27 VIS not applicable for this client. em6 Intake: 14:00 IV: 1000ml; Total: 1000ml. em6 Outcome: 13:04 Decision to Hospitalize by Provider. snw 16:27 Admitted to Tele accompanied by nurse, family with patient, via stretcher, room 415. em6 16:27 Condition: stable 16:27 Instructed on the need for admit. 16:28 Patient left the ED. em6 Signatures: Dispatcher [employer] EDJanice Chowdary, SEAFOOD PACKER-C SEAFOOD PACKER-Csnw Kamilah Maravilla, RN RN Demi Fisher rg4 Meagan Oropeza RN RN em6 Corrections: (The following items were deleted from the chart) 15:42 12:33 Reassessment: left to CT in wheelchair with tech em6 em6
[2021-12-31] MEDS ORDERED: ONDANSETRON 4 MG (ODT) TAB PO PRN (13:34)
[2021-12-31] MEDS ORDERED: ACETAMINOPHEN 500 MG TAB PO PRN ×2 (13:34→20:37)
[2021-12-31] MEDS ORDERED: HYDROMORPHONE HCL 1 MG/ML INJ IV PRN ×3 (13:34→20:37)
[2021-12-31] MEDS ORDERED: D5 0.45 NS 1,000 ML IV SCH (14:00)
[2021-12-31] MEDS ORDERED: CIPROFLOXACIN 400mg IV 400 MG/200 ML BAG IV SCH (15:00)
[2021-12-31] MEDS ORDERED: ONDANSETRON 4 MG/2 ML VIAL IV PRN ×2 (17:46→20:37)
[2021-12-31] MEDS ORDERED: NACHLORIDE 0.45% 1,000 ML IV SCH (18:00)
[2021-12-31 18:40] VITALS: BMI 40.1
[2021-12-31] MEDS: CIPROFLOXACIN 400mg IV 400 MG/200 ML BAG IV SCH (21:28)
[2021-12-31] MEDS: NACHLORIDE 0.45% 1,000 ML IV SCH (21:29)
[2022-01-01 03:45] LABS: Absolute Lymphocytes (CBC) 2.4 K/uL (0.7-4.9); Hematocrit 36.8 % (39.6-49.0); MCV 92.2 fL (80-100); MPV 8.8 fL (7.6-11.3); RBC Red Blood Cell Count 3.99 M/uL (4.33-5.43)
[2022-01-01 03:58] LABS: Albumin 3.2 g/dL (3.4-5.0); Bilirubin Direct 0.2 mg/dL (0-0.2); Bilirubin Total 0.5 mg/dL (0.2-1.0); Potassium 4.3 mmol/L (3.5-5.1); Protein, Total 6.2 g/dL (6.4-8.2)
[2022-01-01] MEDS ORDERED: INFLUENZA VACCINE (for 6+ mo) 0.5 ML DOSE IMVAC ONE (08:00)
[2022-01-01] MEDS ORDERED: ELETRIPTAN HBR 40 MG PO PRN (08:04)
[2022-01-01] MEDS: CIPROFLOXACIN 400mg IV 400 MG/200 ML BAG IV SCH ×2 (08:16→20:47)
[2022-01-01] MEDS: NACHLORIDE 0.45% 1,000 ML IV SCH ×2 (08:17→16:19)
[2022-01-01] MEDS ORDERED: NALTREXONE HCL PO SCH (09:00)
[2022-01-01] MEDS ORDERED: HOME MED 1 EA UNK (Rabeprazole Sodium [Aciphex] 20 MG Tablet.Dr) PO SCH (09:00)
[2022-01-01] MEDS ORDERED: TOPIRAMATE 100 MG PO SCH (09:00)
[2022-01-01] MEDS ORDERED: HOME MED 1 EA UNK (Cholecalciferol (Vitamin D3) [Vitamin D3] 50 MCG Capsule) PO SCH (09:00)
[2022-01-01] MEDS ORDERED: HOME MED 1 EA UNK (Ascorbic Acid [Vitamin C] 1,000 MG Tablet) PO SCH (09:00)
[2022-01-01] MEDS ORDERED: GLUTATHIONE 500 MG PO SCH (09:00)
[2022-01-01] MEDS ORDERED: HOME MED 1 EA UNK (Losartan Potassium [Losartan Potassium] 100 MG Tablet) PO SCH (09:00)
[2022-01-01] MEDS ORDERED: CIPROFLOXACIN HCL 500 MG TAB PO SCH (09:00)
[2022-01-01] MEDS ORDERED: HOME MED 1 EA UNK (Rabeprazole Sodium [Rabeprazole Sodium] 20 MG Tablet.Dr) PO SCH (09:00)
[2022-01-01] MEDS ORDERED: Ringers Lactate 1,000 ML IV ONE (09:59)
[2022-01-01] MEDS ORDERED: FENTANYL CITR 100 MCG/2 ML ONE (11:37)
[2022-01-01] MEDS ORDERED: MIDAZOLAM HCL 2 MG/2 ML INJ ONE (11:37)
[2022-01-01] MEDS ORDERED: propofoL 200 MG/20 ML VIAL IV ONE (11:37)
[2022-01-01] MEDS ORDERED: LIDOCAINE 1% MPF 5 ML VIAL ONE (11:38)
[2022-01-01 13:42] VITALS: O2SAT 97
--- NOTE | 2022-01-01 14:04 | EKG ---
Test Date: 2021-12-31 Test Time: 12:30:22 Merchandise Distributor: MEASUREMENT RESULTS: Intervals: Rate: 55 MO: 172 QRSD: 98 QT: 448 QTc: 428 Effie: P: 59 MO: 172 QRS: 20 T: 57 INTERPRETIVE STATEMENTS: Sinus bradycardia Low voltage QRS Cannot rule out Anterior infarct, age undetermined Abnormal ECG Compared to ECG 12/16/2016 17:18:49 Low QRS voltage now present Myocardial infarct finding now present Electronically Signed On 01-01-22 14:01:55 CDT by Yohannes Luna
--- NOTE | 2022-01-01 14:34 | CON ---
Reason For Consultation: Kidney stones. History Of Present Illness: Mr. Figueroa is a 76-year-old gentleman with hypertension, hyperlipidemia, arthritis, and history of prostate cancer status post robot-assisted laparoscopic radical prostatect kenyon around 2011. He initially presented to the emergency department on Friday after he had the ligia den onset of left flank pain that was severe. He denied any associated fever or chills, and he had n o nausea, vomiting, or diarrhea. He was seen in the emergency department and discharged with a presc ription for ciprofloxacin and recommended for followup. Unfortunately, the next day, he returned to the emergency department with again severe pain in the absence of any signs of SIRS or sepsis. Becau se of this, he was admitted overnight for pain management and we planned operative management today. Past Medical History: As above. Hypertension, hypercholesterolemia, arthritis. Past Surgical History: 1.Robot-assisted laparoscopic radical prostatectomy. 2.Laparoscopic cholecystectomy. 3.Appendectomy. Allergies: NO KNOWN DRUG ALLERGIES. Social History: He is a never smoker with a remote history of having trialed cigars, but a significa nt history of secondhand smoke exposure. Physical Examination: General: He was comfortable and well-appearing at this time and in no acute distress, recumbent with in the hospital bed. There was no dyspnea or sign of respiratory distress at rest. Neck: No cervical or supraclavicular adenopathy or thyromegaly noted. Abdomen: Soft, nontender, nondistended though obese. Heart: His pulse was regular without any arrhythmia noted. Extremities: His bilateral lower extremities were without swelling or signs of Jeffrey's sign without tenderness. Review of his imaging revealed the presence of stones within the bilateral kidneys with several small calculi present within the distal left ureter. Review of his laboratory studies revealed decline of his white blood count from Friday to normal on and creatinine stable at 1.3. Preoperative chest x-ray completed and was without acute infiltrate. There were sclerotic foci withi n the mid to lower anterior right rib that were apparently unchanged from a prior evaluation. Assessment And Recommendations: This is a 76-year-old gentleman with hypertension, hypocholesterolem ia, arthritis, and history of prostate cancer status post robot-assisted laparoscopic radical prostat ectomy in 2011, now with bilateral small volume nephrolithiasis associated with obstructive ureteroli thiasis with a 5.3 mm stone in the mid left ureter, an additional smaller calculi composing in about 4 mm stone burden within the distal left ureter associated with a right renal cystic lesion and right approximately 2.9 cm adrenal mass. To manage the acute pain associated with his left obstructive ureterolithiasis, we will perform cysto scopy and place a left ureteral stent today. Subsequent definitive management of his ureterolithiasi s will be planned as an outpatient. He also will require further evaluation of the right cystic renal lesion as well as the adrenal mass seen on noncontrast CT above. KANDI/LEYDI Voice ID: [id number] Report ID: [id number]
--- NOTE | 2022-01-01 15:27 | RAD REPORT ---
EXAM DESCRIPTION: RAD - Urethrocystogrphy Retrograde - 01/01/2022 3:12 pm CLINICAL HISTORY: ICD N 20.0 FINDINGS: 4 fluoroscopic spot images obtained. Fluoroscopy time.3 minutes Left ureter was cannulated and contrast administered. Subsequently an ureteral stent was placed. Exam ination was performed by Dr Dooley
--- NOTE | 2022-01-01 16:40 | OP ---
Surgeon: ROMULO HEREDIA Preoperative Diagnoses: 1.Left ureterolithiasis. 2.Bilateral small volume nephrolithiasis. 3.Left flank pain. Postoperative Diagnoses: 1.Left ureterolithiasis. 2.Bilateral small volume nephrolithiasis. 3.Left flank pain. 4.Meatal stenosis. Principal Procedures: 1.Cystoscopy. 2.Left retrograde pyelography. 3.Left ureteral stent placement. 4.Urethral dilation using sounds. Indication For Procedure: Mr. Figueroa presented to the Emergency Department on Friday with an obstruc ting mid distal ureteral set of calculi. He was then discharged and returned to the emergency [facility] the following day, at which point he was admitted for medical management. He was counseled on o ptions and a ureteral stent was recommended to relieve his discomfort until definitive stone manageme nt can occur. Procedure In Detail: The patient was consented in the preoperative holding area before being transfe rred to operative suite where general anesthesia was induced. He was given ciprofloxacin, oral antim icrobial prophylaxis continued from his floor admission. Pneumo boots were provided for DVT prophyla xis. He was placed in the lithotomy position, padded and secured to the table appropriately. His ge nitalia were prepped with Hibiclens and he was draped in standard fashion. The case was begun using a 22-Zambian rigid cystoscope to attempt to traverse the urethra. However, there was meatal stenosis that prohibited passage of the 22-Zambian cystoscope. Of note, he had a history of robot-assisted lap aroscopic radical prostatectomy and may have some scar tissue the result of that procedure. As a res ult, I employed urethral sounds to dilate the meatus and fossa navicularis to 28-Zambian. I was then able to pass the 22-Zambian rigid cystoscope through the urethra and into the bladder with ease. The bladder was then surveyed, and there were no papillary mucosal lesions, foreign bodies, or stones not ed throughout. The ureteral orifices were orthotopic in location and the urine was clear. The left ureteral orifice was cannulated using the tip of a Sensor wire and a 5-Zambian ureteral access cathete r. A retrograde pyelogram was then performed. Left retrograde pyelography: Using a 70:30 mixture of Omnipaque and saline, the contrast mixture was injected via the 5-Zambian ure teral access catheter and did propagate up the distal most component of the ureter before reaching wh at appeared to be an obstructed segment of the mid distal ureter with ureteral nephrosis before the u reter returned to a normal caliber in the mid ureter into the proximal before entering a moderately d ilated renal pelvis. As a result, I passed the sensor wire via the 5-Zambian ureteral access catheter and was able to navigate it into the upper pole of the kidney as observed fluoroscopically. Over th e wire, we then passed a 6-Zambian by 26 cm double-J left-sided ureteral stent with a coil observed fl uoroscopically in the upper pole and 1 cystoscopically formed in the bladder. I then decompressed hi s bladder fluid and urine, and he was awakened from general anesthesia after being taken out of the l ithotomy position. He was then transferred to a stretcher and then transferred to the recovery room in good condition. Complications: None. Discharge Disposition: He should follow up with me in the Urology Clinic to discuss definitive surgi mai management of his left obstructive ureterolithiasis. He will also require evaluation of a 3 cm r ight adrenal mass seen on CT as well as a minimally complex right renal cyst appreciated on noncontra st CT. He would also benefit from evaluation of his history of a known Yordy greater stage prostat e cancer with PSA, recognizing a chest x-ray performed preop reveals sclerotic foci within the mid to l ower anterior rib on the right. KANDI/LEYDI Voice ID: [id number] Report ID: [id number]
[2022-01-01 21:00] VITALS: BP 149/76; TEMP 97.9
[2022-01-01] MEDS ORDERED: HOME MED 1 EA UNK (Pravastatin [Pravachol*] 40 MG/TAB Tab) PO SCH (21:00)
[2022-01-02] MEDS ORDERED: PROPRANOLOL HCL 120 MG PO SCH (06:00)
== END 2022-01-01 21:15 | disposition home or self-care (01) ==
LOC: ER 11:05 → 4TH 16:03
PROVIDERS: ADMIT Internal Medicine; ATTEND Internal Medicine
PROC: 0T778DZ Dilation of Left Ureter with Intraluminal Device, Via Natural or Artificial Opening Endoscopic (ICD-10-PCS; principal; 2022-01-01 12:45)
DX: N20.2 Calculus of kidney with calculus of ureter (principal); N35.911 Unspecified urethral stricture, male, meatal; Z20.822 Contact with and (suspected) exposure to COVID-19
CPT/HCPCS: 36415; 51610; 71045; 74176; 74450; 76377; 80048; 80053; 80076; 83690; 85025; 87811; 90471; 93005; 96361; 96374; 99285; G0378; J0744; J2001; J2250; J2704; J3010; J7030; J7120; Q2035

== ENCOUNTER 2022-02-21 00:01 | Emergency (ER) | payer OTHER, MEDICARE ==
--- OUTSIDE RECORDS SUMMARY | 2022-02-21 00:05 | XMS REPORT | Continuity of Care Document ---
:1945 Author Organization [facility] t Address [address] [place] [address] Care Team Providers Name Role Phone Baltazar Madden MD Primary Care Physician Baltazar Madden Attending Clinician Unavailable Payers Payer Name Policy Type Policy Number Effective Date Expiration Date S mihai AAR 53 [id number] [facility] Problems Condition Condition Condition Status Onset Resolution Last Treating Co mments Source Name Details Category Date Date Treatment Clinician Date Calculus Nephrouret Problem Com mon of kidney erolithias Spi rit with is - [facility]ter [facility] Allergies, Adverse Reactions, Alerts This patient has no known allergies or adverse reactions. Social History Social Habit Start Date Stop Date Quantity Comments Source History of Tobacco [facility] Use [facility] Sex Assigned At [birth year] [facility] 00:00:00 00:00:00 Smoking Status Start Date Stop Date Source Tobacco smoking consumption [facility] unknown Never Smoker [facility] Medications Ordered Filled Start Stop Current Ordering Indication Dosage Frequency Signature Comments Components Source Medication Medication Date Date Medication? Clinician (SIG) Name Name Relpax Relpax No Relpax Aciphex Aciphex No Aciphex topiramate topiramate No topiramate Pravachol Pravachol No Pravachol losartan losartan No losartan SUMAtriptan SUMAtriptan No SUMAtripta n Vitamin D3 Vitamin D3 No Vitamin D3 Vital Signs Vital Name Observation Time Observation Value Comments Source height 2022-01-10 16:45:00 66 [in_i] [facility] weight 2022-01-10 16:45:00 246.4 [lb_av] [facility] temperature 2022-01-10 16:45:00 97.1 [degF] [facility] bmi 2022-01-10 16:45:00 39.77 kg/m2 [facility] oximetry 2022-01-10 16:45:00 98 % [facility] respiratory rate 2022-01-10 16:45:00 18 /min Comm on [facility] blood pressure 2022-01-10 16:45:00 125 mm[Hg] [facility] [place] [facility] blood pressure 2022-01-10 16:45:00 70 mm[Hg] [facility] [place] [facility] Procedures This patient has no known procedures. Plan of Care Planned Activity Planned Date Details Comments Source Future Scheduled 2022-02-21 INFLUENZA VACCINE [facility] Test 00:04:40 [code = INFLUENZA VACCINE] Future Scheduled 2022-02-21 HEPATITIS B VACCINES Met [facility] Test 00:04:40 (1 of 3 - 3-dose series) [code = HEPATITIS B VACCINES (1 of 3 - 3-dose series)] Future Scheduled 2022-02-21 COVID-19 VACCINE (#1) [facility] Test 00:04:40 [code = COVID-19 VACCINE (#1)] Future Scheduled 2022-02-21 Hepatitis C screening [facility] Test 00:04:40 (procedure) [code = 540010781] Future Scheduled 2022-02-21 COLONOSCOPY SCREENING [facility] Test 00:04:40 [code = COLONOSCOPY SCREENING] Future Scheduled 2022-02-21 SHINGLES VACCINES (1 [facility] Test 00:04:40 of 2) [code = SHINGLES VACCINES (1 of 2)] Future Scheduled 2022-02-21 65+ [facility] VACCINE (1 - PCV) [code = 65+ PNEUMOCOCCAL VACCINE (1 - PCV)] Future Scheduled 2021-11-15 Hepatitis C screening [facility] Test 19:13:45 (procedure) [code = [id number]] Future Scheduled 2021-11-15 COLONOSCOPY SCREENING [facility] Test 19:13:45 [code = COLONOSCOPY SCREENING] Future Scheduled 2021-11-15 SHINGLES VACCINES (1 Met [facility] Test 19:13:45 of 2) [code = SHINGLES VACCINES (1 of 2)] Future Scheduled 2021-11-15 65+ [facility] 19:13:45 VACCINE (1 - PCV) [code = 65+ PNEUMOCOCCAL VACCINE (1 - PCV)] Future Scheduled 2021-11-15 INFLUENZA VACCINE [facility] Test 19:13:45 [code = INFLUENZA VACCINE] Future Scheduled 2021-11-15 HEPATITIS B VACCINES [facility] Test 19:13:45 (1 of 3 - 3-dose series) [code = HEPATITIS B VACCINES (1 of 3 - 3-dose series)] Future Scheduled 2021-11-15 COVID-19 VACCINE (#1) [facility] Test 19:13:45 [code = COVID-19 VACCINE (#1)] Future Scheduled 2021-11-15 Hepatitis C screening [facility] Test 19:13:45 (procedure) [code = [id number]] Future Scheduled 2021-11-15 COLONOSCOPY SCREENING [facility] Test 19:13:45 [code = COLONOSCOPY SCREENING] Future Scheduled 2021-11-15 SHINGLES VACCINES (1 Met [facility] Test 19:13:45 of 2) [code = SHINGLES VACCINES (1 of 2)] Future Scheduled 2021-11-15 65+ [facility]OCCAL [facility] Test 19:13:45 VACCINE (1 - PCV) [code = 65+ PNEUMOCOCCAL VACCINE (1 - PCV)] Future Scheduled 2021-11-15 INFLUENZA VACCINE [facility] Test 19:13:45 [code = INFLUENZA VACCINE] Future Scheduled 2021-11-15 HEPATITIS B VACCINES [facility] Test 19:13:45 (1 of 3 - 3-dose series) [code = HEPATITIS B VACCINES (1 of 3 - 3-dose series)] Future Scheduled 2021-11-15 COVID-19 VACCINE (#1) Me [facility] Test 19:13:45 [code = COVID-19 VACCINE (#1)] Encounters Start End Encounter Admission Attending Care Care Encounter Source Date/Time Date/Time Type Type Clinicians Facility Department ID 2022-01-10 Outpatient TIKA Madden [facility] [id number] Common 16:55:03 Baltazar [id number] [facility] 2022-01-10 2022-01-10 OFFICE [facility] [id number] Co [facility]mon 00:00:00 00:00:00 VISIT [facility] LEVEL 4 [facility] 2020-05-17 2020-05-17 [facility] [id number] [address] [place] [address] 00:00:00 00:00:00 BALTAZAR [address] 2020-05-17 2020-05-17 [facility] [id number] [address] [place] [address] 00:00:00 00:00:00 BALTAZAR [address] Results This patient has no known results.
[2022-02-21 01:00] LABS: Urine Blood 3+ (Negative); Urine Glucose Negative (Negative); Urine Protein 3+ (Negative); Urine Specific Gravity 1.025 (1.005-1.030)
[2022-02-21] MEDS ORDERED: ONDANSETRON 4 MG/2 ML VIAL ONE (01:18)
[2022-02-21] MEDS ORDERED: CEFTRIAXONE 1000 MG/VIAL ONE (01:18)
[2022-02-21] MEDS ORDERED: KETOROLAC 30 MG/ML INJ ONE (01:18)
[2022-02-21] MEDS ORDERED: NA CHLORIDE 0.9% 1,000 ML ONE (01:19)
[2022-02-21] MEDS ORDERED: NA CHLORIDE 0.9% 50 ML IV ONE (01:19)
[2022-02-21 01:23] LABS: Urine RBC >50 /HPF (None Seen)
[2022-02-21 01:24] LABS: Urine Bacteria <20 /HPF (<20)
[2022-02-21 01:28] LABS: Absolute Lymphocytes (CBC) 2.6 K/uL (0.7-4.9); Hematocrit 40.7 % (39.6-49.0); Lymphocytes % 28.8 % (15.3-44.8); MCV 91.8 fL (80-100); MPV 8.4 fL (7.6-11.3); RBC Red Blood Cell Count 4.43 M/uL (4.33-5.43)
[2022-02-21 01:42] LABS: Albumin 3.7 g/dL (3.4-5.0); Bilirubin Total 0.3 mg/dL (0.2-1.0); Potassium 4.2 mmol/L (3.5-5.1)
[2022-02-21] MEDS ORDERED: FENTANYL CITR 100 MCG/2 ML ONE (01:49)
[2022-02-21] MEDS ORDERED: CIPROFLOXACIN HCL 500 MG TAB ONE (02:30)
--- NOTE | 2022-02-21 02:30 | ER ---
Nurse's Notes [facility] Name: Kannan Figueroa Age: 76 yrs Sex: Male : 1945 Arrival Date: 02/21/2022 Time: 00:12 Bed 5 Private MD: Diagnosis: Hydronephrosis with renal and ureteral calculous obstruction-3.3 mm right uvj;UTI/ Urinary tract infection, site not specified Presentation: 02/21 00:29 Chief complaint: Patient states: "This feels like another kidney stone. I had one just tw5 a few weeks ago.". Coronavirus screen: Vaccine status: Patient reports receiving the 2nd dose of the covid vaccine. Moderna. Ebola Screen: Patient negative for fever greater than or equal to 101.5 degrees Fahrenheit, and additional compatible Ebola Virus Disease symptoms Patient denies exposure to infectious person. Patient denies travel to an Ebola-affected area in the 21 days before illness onset. Initial Sepsis Screen: Does the patient meet any 2 criteria? No. Patient's initial sepsis screen is negative. Does the patient have a suspected source of infection? No. Patient's initial sepsis screen is negative. Risk Assessment: Do you want to hurt yourself or someone else? Patient reports no desire to harm self or others. Onset of symptoms is unknown. 00:29 Method Of Arrival: Ambulatory tw5 00:29 Acuity: ROSALBA 3 tw5 Triage Assessment: 00:31 General: Appears uncomfortable, Behavior is calm, cooperative, appropriate for age. tw5 Pain: Complains of pain in right low back Pain currently is 5 out of 10 on a pain scale. at worst was 9 out of 10 on a pain scale. Historical: - Allergies: 00:31 No Known Allergies; tw5 - Home Meds: 00:31 Aciphex 20 mg Oral TbEC 1 tab once daily [Active]; Fioricet Oral [Active]; losartan 100 tw5 mg Oral tab 1 tab once daily [Active]; naltrexone 1.5 mg BID Oral [Active]; sumatriptan succinate 100 mg Oral tab 1 tab [Active]; topiramate 50 mg Oral tab 1 tab 2 times per day [Active]; propranolol 120 mg Oral cp24 1 cap once daily [Active]; Relpax 40 mg Oral tab 1 tab [Active]; Vitamin D3 50 mcg (2,000 unit) Oral cap daily [Active]; Pravachol 40 mg Oral tab 1 tab once daily [Active]; pravastatin 20 mg Oral tab 1 tab once daily [Active]; propranolol 60 mg Oral Cs24 [Active]; - PMHx: 00:31 angina pectoris; Arthritis; Hypercholesterolemia; Hypertensive disorder; Migraine; tw5 Pancreatitis; Kidney stone; - PSHx: 00:31 Adenoid excision; Appendectomy; NICKOLAS knee; Cholecystectomy; prostate; Tonsillectomy; tw5 - Immunization history:: Flu vaccine is up to date. - Social history:: Smoking status: Patient denies any tobacco usage or history of. - Family history:: not pertinent. Screenin:19 Abuse screen: Denies threats or abuse. Denies injuries from another. Nutritional screening: No deficits noted. Tuberculosis screening: No symptoms or risk factors identified. Fall Risk IV access (20 points). Assessment: 01:00 General: Appears uncomfortable, Behavior is calm, cooperative. Pain: Complains of pain ll3 in right lower quadrant and right upper quadrant Pain radiates to back Pain currently is 7 out of 10 on a pain scale. at worst was 9 out of 10 on a pain scale. Pain began 1 day ago. Is continuous. Neuro: Level of Consciousness is awake, alert, obeys commands, Oriented to person, place, time, situation. : Urine is blood tinged, Reports pain lower quadrant(s) in lower back. Derm: Skin is pink, warm \\T\\ dry. 02:21 Reassessment: Patient and/or family updated on plan of care and expected duration. Pain ll3 level reassessed. Patient is alert, oriented x 3, equal unlabored respirations, skin warm/dry/pink. States pain is 5/10. Vital Signs: 00:29 BP 127 / 74; Pulse 51; Resp 18; Temp 98.7; Pulse Ox 97% on R/A; Weight 108.86 kg; tw5 Height 5 ft. 6 in. (167.64 cm); Pain 7/10; 02:21 BP 135 / 64; Pulse 51; Resp 17; Pulse Ox 98% on R/A; ll3 00:29 Body Mass Index 38.74 (108.86 kg, 167.64 cm) ED Course: 00:12 Patient arrived in ED. 00:31 Triage completed. 00:31 Arm band placed on right wrist. tw5 00:49 Oneil Cee MD is Attending Physician. carol 01:06 Anabella Haney is Primary Nurse. tw 01:06 CBC with Diff Sent. tw 01:06 CMP Sent. tw 01:06 Lipase Sent. tw 01:07 Initial lab(s) drawn, by me, sent to lab. Inserted saline lock: 20 gauge in right tw5 antecubital area, using aseptic technique. Blood collected. 01:40 CT Stone Protocol In Process Unspecified. EDMS 02:27 Angel Dooley MD is Referral Physician. carol 02:32 Abdomen 1 View (KUB) XRAY In Process Unspecified. EDMS 02:49 Patient has correct armband on for positive identification. Placed in gown. Bed in low ll3 position. Call light in reach. Side rails up X 1. Adult w/ patient. 02:49 No provider procedures requiring assistance completed. IV discontinued, intact, ll3 bleeding controlled, No redness/swelling at site. Pressure dressing applied. Administered Medications: 01:30 Drug: Rocephin (cefTRIAXone) 2 grams Route: IV; Rate: per protocol; Site: right ll3 antecubital; 02:47 Follow up: Response: No adverse reaction; IV Status: Completed infusion; IV Intake: [id number] 01:38 Drug: NS 0.9% 1000 ml Route: IV; Rate: 1 bolus; Site: right antecubital; ll3 02:48 Follow up: Response: No adverse reaction; IV Status: Completed infusion; IV Intake: ll3 1000ml 01:38 Drug: Zofran (Ondansetron) 4 mg Route: IVP; Site: right antecubital; ll3 02:48 Follow up: Response: No adverse reaction ll3 01:38 Drug: Ketorolac 30 mg Route: IVP; Site: right antecubital; ll3 02:48 Follow up: Response: No adverse reaction; Pain is decreased ll3 02:07 Drug: fentaNYL (PF) 50 mcg Route: IVP; Site: right antecubital; ll3 02:47 Follow up: Response: No adverse reaction; Pain is decreased ll3 02:32 Drug: Cipro (ciprofloxacin) 500 mg Route: PO; ll3 02:47 Follow up: Response: No adverse reaction ll3 02:40 Drug: Flomax (tamsulosin) 0.4 mg Route: PO; ll3 02:48 Follow up: Response: Medication administered at discharge. ll3 Medication: 02:49 VIS not applicable for this client. ll3 Intake: 02:47 IV: 50ml; Total: 50ml. ll3 02:48 IV: 1000ml; Total: 1050ml. ll3 Outcome: 02:29 Discharge ordered by MD. medina 02:49 Discharged to home ambulatory, with significant other. ll3 02:49 Condition: stable 02:49 Discharge instructions given to patient, significant other, Instructed on discharge instructions, follow up and referral plans. medication usage, Demonstrated understanding of instructions, follow-up care, medications, Prescriptions given X 5 02:49 Patient left the ED. ll3 Signatures: Dispatcher [employer] EDMS Oneil Cee MD MD cha Wood, Tiffany tw5 Chula Dobson RN RN ll3 Corrections: (The following items were deleted from the chart) 01:22 00:29 BP 127 / 74; Pulse 51bpm; Resp 18bpm; Temp 98.7F; 108.86 kg; Height 5 ft. 6 in.; tw5 BMI: 38.7; Pain 7/10; tw5
--- NOTE | 2022-02-21 02:30 | EDPHYS ---
Physician Documentation [facility] Name: Kannan Figueroa Age: 76 yrs Sex: Male : 1945 Arrival Date: 02/21/2022 Time: 00:12 Bed 5 Private MD: Oneil Mobley HPI: 02/21 01:50 This 76 yrs old Male presents to ER via Ambulatory with complaints of carol Possible Kidney Stone. 01:50 The patient presents with abdominal pain in the right upper quadrant, right lower carol quadrant, abdominal distention in the right upper quadrant, in the right lower quadrant. Onset: The symptoms/episode began/occurred 1 day(s) ago. The patient complains of pain in the right mid back and right low back. The pain does not radiate. Onset: The symptoms/episode began/occurred 2 day(s) ago. Modifying factors: The symptoms are alleviated by nothing. the symptoms are aggravated by nothing. Associated signs and symptoms: The patient has no apparent associated signs or symptoms. Modifying factors: The symptoms are alleviated by nothing, the symptoms are aggravated by nothing. Historical: - Allergies: 00:31 No Known Allergies; tw5 - Home Meds: 00:31 Aciphex 20 mg Oral TbEC 1 tab once daily [Active]; Fioricet Oral [Active]; losartan 100 tw5 mg Oral tab 1 tab once daily [Active]; naltrexone 1.5 mg BID Oral [Active]; sumatriptan succinate 100 mg Oral tab 1 tab [Active]; topiramate 50 mg Oral tab 1 tab 2 times per day [Active]; propranolol 120 mg Oral cp24 1 cap once daily [Active]; Relpax 40 mg Oral tab 1 tab [Active]; Vitamin D3 50 mcg (2,000 unit) Oral cap daily [Active]; Pravachol 40 mg Oral tab 1 tab once daily [Active]; pravastatin 20 mg Oral tab 1 tab once daily [Active]; propranolol 60 mg Oral Cs24 [Active]; - PMHx: 00:31 angina pectoris; Arthritis; Hypercholesterolemia; Hypertensive disorder; Migraine; tw5 Pancreatitis; Kidney stone; - PSHx: 00:31 Adenoid excision; Appendectomy; NICKOLAS knee; Cholecystectomy; prostate; Tonsillectomy; tw5 - Immunization history:: Flu vaccine is up to date. - Social history:: Smoking status: Patient denies any tobacco usage or history of. - Family history:: not pertinent. ROS: 01:50 Constitutional: Negative for fever, chills, and weight loss, Eyes: Negative for injury, carol pain, redness, and discharge, ENT: Negative for injury, pain, and discharge, Neck: Negative for injury, pain, and swelling, Cardiovascular: Negative for chest pain, palpitations, and edema, Respiratory: Negative for shortness of breath, cough, wheezing, and pleuritic chest pain, Back: Negative for injury and pain, : Negative for injury, bleeding, discharge, and swelling, MS/Extremity: Negative for injury and deformity, Skin: Negative for injury, rash, and discoloration, Neuro: Negative for headache, weakness, numbness, tingling, and seizure, Psych: Negative for depression, anxiety, suicide ideation, homicidal ideation, and hallucinations, Allergy/Immunology: Negative for hives, rash, and allergies, Endocrine: Negative for neck swelling, polydipsia, polyuria, polyphagia, and marked weight changes, Hematologic/Lymphatic: Negative for swollen nodes, abnormal bleeding, and unusual bruising. 01:50 Abdomen/GI: Positive for abdominal pain, flatulence, of the anterior aspect of right lateral abdomen, posterior aspect of right lateral abdomen, right upper quadrant and right lower quadrant. Exam: 01:50 Constitutional: This is a well developed, well nourished patient who is awake, alert, carol and in no acute distress. Head/Face: Normocephalic, atraumatic. Eyes: Pupils equal round and reactive to light, extra-ocular motions intact. Lids and lashes normal. Conjunctiva and sclera are non-icteric and not injected. Cornea within normal limits. Periorbital areas with no swelling, redness, or edema. ENT: Nares patent. No nasal discharge, no septal abnormalities noted. Tympanic membranes are normal and external auditory canals are clear. Oropharynx with no redness, swelling, or masses, exudates, or evidence of obstruction, uvula midline. Mucous membranes moist. Neck: Trachea midline, no thyromegaly or masses palpated, and no cervical lymphadenopathy. Supple, full range of motion without nuchal rigidity, or vertebral point tenderness. No Meningismus. Chest/axilla: Normal chest wall appearance and motion. Nontender with no deformity. No lesions are appreciated. Cardiovascular: Regular rate and rhythm with a normal S1 and S2. No gallops, murmurs, or rubs. Normal PMI, no JVD. No pulse deficits. Respiratory: Lungs have equal breath sounds bilaterally, clear to auscultation and percussion. No rales, rhonchi or wheezes noted. No increased work of breathing, no retractions or nasal flaring. Abdomen/GI: Soft, non-tender, with normal bowel sounds. No distension or tympany. No guarding or rebound. No evidence of tenderness throughout. Back: No spinal tenderness. No costovertebral tenderness. Full range of motion. Male : Normal genitalia with no discharge or lesions. Skin: Warm, dry with normal turgor. Normal color with no rashes, no lesions, and no evidence of cellulitis. MS/ Extremity: Pulses equal, no cyanosis. Neurovascular intact. Full, normal range of motion. Neuro: Awake and alert, GCS 15, oriented to person, place, time, and situation. Cranial nerves II-XII grossly intact. Motor strength 5/5 in all extremities. Sensory grossly intact. Cerebellar exam normal. Normal gait. Psych: Awake, alert, with orientation to person, place and time. Behavior, mood, and affect are within normal limits. Vital Signs: 00:29 BP 127 / 74; Pulse 51; Resp 18; Temp 98.7; Pulse Ox 97% on R/A; Weight 108.86 kg; tw5 Height 5 ft. 6 in. (167.64 cm); Pain 7/10; 02:21 BP 135 / 64; Pulse 51; Resp 17; Pulse Ox 98% on R/A; ll3 00:29 Body Mass Index 38.74 (108.86 kg, 167.64 cm) tw5 MDM: 00:49 Patient medically screened. carol 01:57 Differential diagnosis: diverticulitis, cholecystitis, Cholelithiasis, Mesenteric carol ischemia or infarction, non-specific abd pain, pancreatitis, Ureterolithiasis, urinary tract infection. Data reviewed: vital signs, nurses notes, lab test result(s), radiologic studies. Data interpreted: monitor and storage bin tender: rate is 51 beats/min, rhythm is regular, Pulse oximetry: on room air. Test interpretation: by ED physician or midlevel provider: plain radiologic studies. Counseling: I had a detailed discussion with the patient and/or guardian regarding: the historical points, exam findings, and any diagnostic results supporting the discharge/admit diagnosis, lab results, radiology results. 02/21 00:51 Order name: CBC with Diff; Complete Time: 01:44 [facility] 02/21 00:51 Order name: CMP; Complete Time: 01:44 [facility] 02/21 00:51 Order name: Lipase; Complete Time: 01:44 [facility] 02/21 00:51 Order name: Urine Microscopic Only; Complete Time: 01:44 [facility] 02/21 01:01 Order name: Urine Dipstick-Ancillary; Complete Time: 01:09 [facility] 02/21 01:27 Order name: Urine Culture [facility] 02/21 00:51 Order name: CT Stone Protocol [facility] 02/21 01:48 Order name: Abdomen 1 View (KUB) XRAY [facility] 02/21 00:51 Order name: IV Saline Lock; Complete Time: 01:06 [facility] 02/21 00:51 Order name: Labs collected and sent; Complete Time: 01:06 [facility] 02/21 00:51 Order name: Urine Dipstick-Ancillary (obtain specimen); Complete Time: 01:13 [facility] Administered Medications: 01:30 Drug: Rocephin (cefTRIAXone) 2 grams Route: IV; Rate: per protocol; Site: right ll3 antecubital; 02:47 Follow up: Response: No adverse reaction; IV Status: Completed infusion; IV Intake: [id number] 01:38 Drug: NS 0.9% 1000 ml Route: IV; Rate: 1 bolus; Site: right antecubital; ll3 02:48 Follow up: Response: No adverse reaction; IV Status: Completed infusion; IV Intake: ll3 1000ml 01:38 Drug: Zofran (Ondansetron) 4 mg Route: IVP; Site: right antecubital; ll3 02:48 Follow up: Response: No adverse reaction ll3 01:38 Drug: Ketorolac 30 mg Route: IVP; Site: right antecubital; ll3 02:48 Follow up: Response: No adverse reaction; Pain is decreased ll3 02:07 Drug: fentaNYL (PF) 50 mcg Route: IVP; Site: right antecubital; ll3 02:47 Follow up: Response: No adverse reaction; Pain is decreased ll3 02:32 Drug: Cipro (ciprofloxacin) 500 mg Route: PO; ll3 02:47 Follow up: Response: No adverse reaction 3 02:40 Drug: Flomax (tamsulosin) 0.4 mg Route: PO; ll3 02:48 Follow up: Response: Medication administered at discharge. ll3 Disposition Summary: 02/21/22 02:29 Discharge Ordered Location: Home carol Problem: new carol Symptoms: have improved carol Condition: Stable carol Diagnosis - Hydronephrosis with renal and ureteral calculous obstruction - 3.3 mm right uvj carol - UTI/ Urinary tract infection, site not specified carol Followup: carol - With: Private Physician - When: 1 - 2 days - Reason: Recheck today's complaints, Continuance of care, Re-evaluation by your physician Followup: carol - With: Angel Dooley MD - When: 2 - 3 days - Reason: Recheck today's complaints, Re-evaluation by your physician Discharge Instructions: - Discharge Summary Sheet carol - Dysuria carol - Kidney Stones carol - Urinary Tract Infection, Adult carol - Kidney Stones, [facility] carol - Urinary Tract Infection, Adult, Kftd-he-Rrig carol - Hydronephrosis [facility] Forms: - Medication Reconciliation Form [facility] - Thank You Letter [facility] - Antibiotic Education [facility] - Prescription Opioid Use [facility] Prescriptions: - Cipro 500 mg Oral Tablet - take 1 tablet by ORAL route every 12 hours for 7 days; 14 tablet; Refills: 0, [facility] Product Selection Permitted - tamsulosin 0.4 mg Oral capsule - take 1 capsule by ORAL route once daily 1/2 hour following the same meal each [facility] day; 30 capsule; Refills: 0, Product Selection Permitted - Zofran 4 mg Oral Tablet - take 1 tablet by ORAL route every 12 hours As needed; 20 tablet; Refills: 0, [facility] Product Selection Permitted - Tylenol-Codeine #3 300 mg-30 mg Oral - take 2 tablet by ORAL route every 6 hours; 20 tablet; Refills: 0, Product [facility] Selection Permitted Signatures: Dispatcher [employer] Oneil Mariano MD MD cha Wood, Tiffany tw5 Chula Dobson RN RN ll3
[2022-02-21] MEDS ORDERED: TAMSULOSIN 0.4 MG SR CAP ONE (02:35)
[2022-02-21 07:14] VITALS: TEMP 98.7
[2022-02-21 07:15] VITALS: BP 135/64; O2SAT 98
--- NOTE | 2022-02-21 13:13 | RAD REPORT ---
EXAM DESCRIPTION: CT - Stone Protocol - 02/21/2022 6:50 am CLINICAL HISTORY: 76 years, Male, Flank pain, kidney stone suspected COMPARISON: 12/31/2021 TECHNIQUE: Multiple transaxial tomograms of the abdomen and pelvis were performed from the lung base s to the symphysis pubis utilizing 3 mm slice thickness at 3 mm interval reconstruction, without admi nistration of IV and oral contrast. Multiplanar reformats in the sagittal and coronal plane were generated and reviewed. This exam was performed according to our departmental dose-optimization protocol, which includes auto mated exposure control, adjustment of the mA and/or kV according to patient size and/or use of iterat annette reconstruction technique. FINDINGS: The lack of IV and oral contrast limits evaluation of solid organs, subtle lesions cannot be excluded. The lung bases demonstrate to be clear. Very minimal coronary artery calcification. Grossly the unopacified liver, gallbladder, pancreas, spleen and the left adrenal gland demonstrate t o be within normal limits, no significant focal lesions were identified. Again identified is the pr esence of a 2.9 cm right adrenal lesion with Hounsfield units of 28 similar to prior studies. The right kidney demonstrated presence of mild calyectasis extending down to the level of the right U VJ/trigone where there is a approximately 3.3 mm calculus on axial image 129. There is residual lower pole calculus measuring 1.9 mm on image 60 and 1.4 mg calculus on image 53. There is a exophytic low er pole simple right renal cyst measuring 6.1 x 5.9 cm on image 82. No follow-up is recommended. The left kidney demonstrated presence of a left internal ureteral stent in good position. Again there is identified presence of a mid/distal ureter calculus measuring approximately 2.9 mm on image 94. T here is a 2.9 mm calculus lower pole of the kidney on image 75. Grossly the unopacified stomach, small bowel and large bowel demonstrate to be within normal limits. There is no evidence for bowel dilatation/or free air. The urinary bladder was partially distended with no gross abnormalities. The prostate gland was diffi cult to visualize perhaps suggesting previous prostatectomy. The aorta demonstrate minimal atheroscle rotic disease extending into the aortic bifurcation. There is no retroperitoneal lymphadenopathy. There is no evidence for ascites. The rest of the soft tissue demonstrate to be grossly unremarkable . There is a small left inguinal hernia containing omentum IMPRESSION: 3.3 mm calculus at the right UVJ/trigone with mild right hydronephrosis. Left internal ureteral stent in good position. Again there is a 2.9 mm mid/distal left ureter calculu s. Bilateral nephrolithiasis. Stable right adrenal lesion most likely corresponding to a adenoma. Small left inguinal hernia containing omentum. Probable status post prostatectomy Electronically signed by: Pa Li MD 02/21/2022 2:12 AM [employer]PER[employer] Due to temporary technical issues with the PACS/Fluency reporting system, reports are being signed by the in house radiologists without review as a courtesy to insure prompt reporting. The interpreting radiologist is fully responsible for the content of the report.
--- NOTE | 2022-02-21 14:14 | RAD REPORT ---
EXAM DESCRIPTION: RAD - Abdomen 1 View (KUB) - 02/21/2022 2:30 am CLINICAL HISTORY: 76 years, Male, FLANK PAIN COMPARISON: None FINDINGS: 1 X-ray view of the abdomen (supine) was performed. There is a left internal ureteral st ent in good position. Clips within the gallbladder fossa correspond to previous cholecystectomy. The gas pattern is nondiagnostic. No signs of ileus or obstruction is demonstrated. No definitive abnor mal opacifications are identified in either renal fossa. Bony structures demonstrate minimal degene rative changes lower lumbar spine and bilateral hip joints. IMPRESSION: Left internal ureteral stent in good position. 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 The interpreting radiologist is fully responsible for the content of the report.
== END 2022-02-21 02:49 | disposition home or self-care (01) ==
LOC: ER 00:01
DX: N13.2 Hydronephrosis with renal and ureteral calculous obstruction (principal); N39.0 Urinary tract infection, site not specified; Z87.442 Personal history of urinary calculi; I10 Essential (primary) hypertension
CPT/HCPCS: 96365; 87088; 85025; 87086; 36415; 83690; 80053; 76377; 74176; 74018; 96375; 99284; J3010; J7030; J2405; 81003; 81015

== ENCOUNTER 2022-03-19 09:16 | Day surgery (SDC) | payer OTHER, MEDICARE ==
[2022-03-13 15:21] LABS: Absolute Lymphocytes (CBC) 2.5 K/uL (0.7-4.9); Hematocrit 40.7 % (39.6-49.0); Lymphocytes % 26.9 % (15.3-44.8); MCV 90.6 fL (80-100); MPV 8.5 fL (7.6-11.3); RBC Red Blood Cell Count 4.49 M/uL (4.33-5.43)
[2022-03-13 15:29] LABS: Potassium 4.1 mmol/L (3.5-5.1)
[~2022-03-19 09:16] MED LIST: Gentamicin Inj 240 MG in NA CHLORIDE 0.9% 100 ML IVPB ONE
[2022-03-19] MEDS ORDERED: Ringers Lactate 1,000 ML IV ONE (09:43)
[2022-03-19] MEDS ORDERED: AMPICILLIN SODIUM 2 GM/VIAL VIAL ONE (09:43)
[2022-03-19] MEDS ORDERED: ONDANSETRON 4 MG/2 ML VIAL ONE (11:00)
[2022-03-19] MEDS ORDERED: MIDAZOLAM HCL 2 MG/2 ML INJ ONE (11:00)
[2022-03-19] MEDS ORDERED: LIDOCAINE 1% MPF 5 ML VIAL ONE (11:00)
[2022-03-19] MEDS ORDERED: propofoL 200 MG/20 ML VIAL IV ONE (11:00)
[2022-03-19] MEDS ORDERED: FENTANYL CITR 100 MCG/2 ML ONE ×3 (11:00→12:28)
[2022-03-19] MEDS ORDERED: PHENAZOPYRIDINE 100MG TAB PO ONE (11:33)
[2022-03-19] MEDS ORDERED: TRAMADOL 37.5mg/APAP 325mg PER TAB PO ONE (11:33)
[2022-03-19] MEDS ORDERED: EPHEDRINE SULF 50 MG/ML VIAL ONE (11:35)
[2022-03-19] MEDS ORDERED: GLYCOPYRROLATE 0.2 MG/ML SYR ONE (11:35)
[2022-03-19] MEDS ORDERED: Mastisol Adhesive Liq ONE ×2 (12:25→12:36)
[2022-03-19] MEDS: HYDROMORPHONE HCL 1 MG/ML INJ ONE ×4 (13:18→13:35)
[2022-03-19] MEDS ORDERED: MEPERIDINE HCL 25 MG/ML SYR ONE (13:45)
[2022-03-19] MEDS ORDERED: KETOROLAC 30 MG/ML INJ IV ONE (13:57)
[2022-03-19] MEDS ORDERED: KETOROLAC 30 MG/ML INJ ONE (14:00)
[2022-03-19 14:06] VITALS: TEMP 97.9
[2022-03-19] MEDS ORDERED: TRAMADOL HCL 50 MG TAB ONE (14:38)
[2022-03-19 14:42] VITALS: BP 113/64; O2SAT 98
--- NOTE | 2022-03-19 14:51 | RAD REPORT ---
EXAM DESCRIPTION: RAD - Urethrocystogrphy Retrograde - 03/19/2022 2:07 pm CLINICAL HISTORY: LEFT STENT PLACEMENT COMPARISON: Urethrocystogrphy Retrograde dated 01/01/2022 FINDINGS/IMPRESSION: 11 intraoperative fluoroscopic images were submitted showing cannulation of the bilateral ureters, injection of contrast, and placement of bilateral ureteral stents. Fluoro time: 0.6 minutes Cumulative dose: 16.3 mGy
--- NOTE | 2022-03-20 07:20 | OP ---
Surgeon: ROMULO HEREDIA Preoperative Diagnoses: 1.Left proximal ureteral 6.5 mm calculus. 2.Right ureterolithiasis. Postoperative Diagnoses: 1.Left proximal ureteral 6.5 mm calculus. 2.Right ureterolithiasis. 3.Meatal stenosis. 4.No obstructing right ureteral calculus identified. Procedures: 1.Urethral dilation using sounds. 2.Cystoscopy with left retrograde pyelogram. 3.Left ureteral stent exchange. 4.Left ureteroscopy with laser lithotripsy and stone basketing. 5.Right retrograde pyelogram. 6.Right ureteroscopy. 7.Right tethered ureteral stent placement. Indication For Procedure: Mr. Figueroa is a 76-year-old gentleman who presented to the Urology Clinic with pain associated with an obstructing left ureteral calculus. Because he also had signs of acute kidney injury, a left ureteral stent was placed for an obstructing proximal 6 to 7 mm ureteral calcul us. After the stent was placed, he subsequently developed right flank pain, which took him to the [facility] where he was diagnosed with a 3 mm distal ureteral obstructing calculus at that ti md. In the interim, the right flank pain has resolved as did his acute kidney injury. He presents t lb for definitive management of his left ureteral obstruction and possible right ureteral obstructi on. Procedure In Detail: The patient was consented in the preoperative holding area before being transfe rred to the operative suite where general anesthesia was induced. He was given ampicillin 2 g and ge ntamicin 2-3 mg/kg IV antimicrobial prophylaxis and Pneumoboots were provided for DVT prophylaxis. Shannan e was placed in lithotomy position, padded and secured to the table appropriately, and his genitalia was prepped with Hibiclens and draped in standard fashion. 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 This was accomplished sequ entially up to 26-Bahamian. I was then able to place the cystoscope into his meatus and navigated via his urethra into his bladder. The bladder was decompressed of fluid and urine, and a partially encru sted left ureteral stent was noted emanating from his ureteral orifice. I thus grasped the coil of t krista left ureteral stent and delivered it to the meatus of the penis. I attempted to pass a Sensor wir e up the stent, whose proximal end remained in the mid ureter, but because of encrustation within the stent, the Sensor wire would not pass. As a result, I simply removed the ureteral stent and placed a 5-Bahamian ureteral access catheter into the ureteral orifice. A retrograde pyelogram was then perfo rmed. Left retrograde pyelography: Using a 70:30 mixture of Omnipaque and saline, contrast was injected vi a the lumen of the 5-Bahamian ureteral access catheter and did propagate up a ureter that was dilated i n the mid zone of the ureter before entering a persistently hydronephrotic renal pelvis and calyces. As a result, I passed a Sensor wire via the 5-Bahamian ureteral access catheter into the putative uppe r pole calyces as observed fluoroscopically. Alongside the wire, I then navigated a semirigid ureter oscope using pressurized normal saline irrigation to traverse the urethra and follow the wire into th e distal ureter, into the mid and mid proximal ureter where the calculus was observed to be impacted in the lateral wall of the ureter. Attempts to basket the stone from that location and bring it down to a location more easily accessible via the ureteroscope were thwarted; so I utilized a 200 nm lase r fiber and thulium laser at power setting of 0.4 joules and 20 hertz alternating with 0.8 joules and 10 hertz to quickly fragment the stone into fragments large enough to get them out of the wall of th e ureter, but to subsequently be able to basket. I then employed the basket again, this time to gras p the stone fragments and deliver them from the ureter into the bladder. Multiple passages of the ur eteroscope were required in order to remove all of the stone fragments. In the end, the ureter was f ree of stone and so I again performed a retrograde pyelogram to confirm ureteral integrity and absenc e of extravasation. When none were noted, I then back-loaded the cystoscope over the indwelling safe ty wire and passed a 6-Bahamian x 26 cm double-J ureteral stent with a coil observed in the upper pole calyx of the kidney and one cystoscopically formed within his bladder. While decompressing his bladd er fluid in urine, I then turned my attention to the right ureteral orifice. This was cannulated usi ng a 5-Bahamian ureteral access catheter and a right-sided retrograde pyelogram was again performed. Right retrograde pyelography: Using a 70:30 mixture of Omnipaque and saline, contrast was injected v ia the lumen of the 5-Bahamian ureteral access catheter and did propagate up a nondilated distal into t he mid and proximal ureter before entering the renal pelvis, which had no significant signs of pelvie ctasis and there was no caliectasis. The calyces were sharp. However, given the small size of the s tone and the potential for only partial obstruction, I left a Sensor wire passed via the 5-Bahamian ure teral access catheter in the upper pole of the kidney and alongside it again performed semirigid uret eroscopy up the distal, into the mid and mid proximal ureter. When no stone was observed, I removed the ureteroscope and back-loaded the cystoscope over the safety wire, passing a 6-Bahamian x 26 cm doub le-J ureteral stent on the right side as well, this time the stent was allowed to remain tethered to its string. I decompressed his bladder of fluid and urine, and we collected several stone fragments for chemical analysis. I then utilized Mastisol and Steri-Strips to secure the tether of the stent t o the glans penis. The patient was then taken out of the lithotomy position, awakened from general a nesthesia, transferred to a stretcher, and then transferred to the recovery room in good condition. Complications: None. Discharge Disposition: He should follow up on Friday for tethered ureteral stent extraction on the r ight side. He will subsequently require followup for cystoscopy and left ureteral stent extraction i n about 3 weeks' time. I will discharge him with a few days of an antimicrobial while the tethered s tent is in place. KANDI/MODL Voice ID: [id number] Report ID: [id number]
== END 2022-03-19 15:00 | disposition home or self-care (01) ==
LOC: OR 09:16
PROVIDERS: ATTEND Urology
PROC: 0T788DZ Dilation of Bilateral Ureters with Intraluminal Device, Via Natural or Artificial Opening Endoscopic (ICD-10-PCS; 2022-03-19)
PROC: 0TC78ZZ Extirpation of Matter from Left Ureter, Via Natural or Artificial Opening Endoscopic (ICD-10-PCS; principal; 2022-03-19 09:30)
DX: N20.1 Calculus of ureter (principal); N35.919 Unspecified urethral stricture, male, unspecified site
CPT/HCPCS: 87088; 85025; 87086; 80048; 36415; 88300; 82360; 74450; 51610; 52356; J2704; J2001; J1580; J2250; J3010 ×3; J2175; J1170 ×2; J7120; J2405; J0290